=== PATIENT | female | born 1985 | race African-American/Black ===

== ENCOUNTER 2022-08-07 08:57 | Outpatient (CLI) | payer OTHER, MEDICAID, SELFPAY ==
[2022-08-07 12:51] LABS: Albumin* 3.6 g/dL (3.3-5.0); Chloride* 108 mmol/L (96-114)
[2022-08-07 12:52] LABS: Potassium* 4.4 mmol/L (3.6-5.1); Sodium* 138 mmol/L (135-149)
[2022-08-07 12:54] LABS: Aspartate Amino Transferase* 27 U/L (12-35); Bilirubin Total* 0.4 mg/dL (0.1-1.5); Blood Urea Nitrogen* 12 mg/dL (5-24); Carbon Dioxide* 24 mmol/L (20-32); Cholesterol* 167 mg/dL (90-199); Creatinine* 0.6 mg/dL (0.5-1.5); Estimated Glomerular Filt Rate 117 ml/min; Total Protein* 6.9 g/dL (6.0-8.3)
[2022-08-07 12:55] LABS: Alanine Aminotransferase* 20 U/L (4-35); Alkaline Phosphatase* 72 U/L (40-150); Calcium* 8.9 mg/dL (8.4-10.6); Glucose* 85 mg/dL (60-115); HDL Cholesterol* 80 mg/dL (>=50); LDL Cholesterol Calculated 73 mg/dL (<100); Triglycerides* 71 mg/dL (40-149)
== END 2022-08-07 08:58 | disposition home or self-care (01) ==
PROVIDERS: PCP Family Medicine; Visit Provider Family Medicine
DX: Z00.00 Encounter for general adult medical examination without abnormal findings (principal); R11.0 Nausea; Z13.29 Encounter for screening for other suspected endocrine disorder; Z13.6 Encounter for screening for cardiovascular disorders
CPT/HCPCS: 80053; 80061; 84443

== ENCOUNTER 2024-02-01 19:34 | Emergency (ER) | payer MEDICAID, SELFPAY ==
[2024-02-01 20:11] VITALS: BP 138/88; PULSE 66; RESP 16; TEMP 36.4; O2SAT 99; BMI 26.9
--- NOTE | 2024-02-01 20:52 | ED.GENADULT ---
HPI - General Adult General Chief complaint: Abdominal Pain Stated complaint: dizzy, stomach pain Time Seen by Provider: 02/01/24 20:41 Source: patient Mode of arrival: ambulatory Limitations: no limitations History of Present Illness HPI narrative: 38-year-old female coming in today concerned about abdominal pain. She states she has had on and off for many days, usually worse when she lays down at night. However, it has been more constant in the last 2 days. She states that is located in the epigastric region that sometimes radiates into the chest. She describes it as a burning pain. Drinking coffee or eating spicy food makes it worse. She states that it gets worse when she lays down at night. She denies any weight loss, fevers, chills, nausea or vomiting. Patient is status post x2, cholecystectomy, with sounds like a partial thyroidectomy. She is not on any medications. Patient denies alcohol or tobacco use. Related Data Previous Rx's ?Medication ?Instructions ?Recorded sumatriptan succinate 100 mg tablet See Rx Instructions PO .COMPLEX #6 05/26/23 tabs Allergies Allergy/AdvReac Type Severity Reaction Status Date / Time No Known Allergies Allergy Unknown Unverified 05/26/23 14:17 Review of Systems Status of ROS: Reports: 10 or more systems reviewed and unremarkable except as noted in History and below PFSH PFS Surgical History Status post left oophorectomy ?Z90.721 - Acquired absence of ovaries, unilateral (ICD-10) S/P cholecystectomy ?Z90.49 - Acquired absence of other specified parts of digestive tract (ICD-10) S/P tubal ligation ?Z98.51 - Tubal ligation status (ICD-10) S/P ?Z98.891 - History of uterine scar from previous surgery (ICD-10) Social History Smoking Status: Never smoker Exam Narrative: Exam Narrative: Well-nourished well-developed patient in no acute distress. Alert and oriented. Answers questions appropriately. Mood and affect are appropriate. Thoughts are goal oriented and rational. No tangential or magical thinking noted. Patient speaks in full sentences without needing to catch her breath. Making patient does not appear ill or toxic. HEENT: Normocephalic atraumatic. Pupils are equally round reactive to light. Extraocular muscles are intact. Conjunctivae are moist without any icterus noted. If she has a subconjunctival hemorrhage on the lateral left eye. Moist mucous membranes. Posterior pharynx is normal. Neck is soft without any lymphadenopathy. She does have what feels to be thyromegaly on the right. Cardiovascular: Heart is regular rate and rhythm S1 and S2 are present without any murmurs. Lungs: Clear to auscultation bilaterally no wheezes rhonchi or rales are appreciated. Patient takes deep breaths without any discomfort. Abdomen: Soft and nontender nondistended with normal bowel sounds. No guarding or rebound. No masses or organomegaly appreciated. Extremities: Bilateral lower extremities are without edema. Skin: Well perfused without any obvious rashes. Const: Vital Signs, click to edit/add: Vital Signs - 24 hr 02/01/24 20:11 Temperature 97.6 F Pulse Rate [Pulse Oximeter] 66 Respiratory Rate 16 Blood Pressure [Ri t Upper Arm] 138/88 Pulse Oximetry 99 Oxygen Delivery Me thod Room Air Course Vital Signs Vital signs: Initial Vital Signs Temperature 97.6 F 02/01/24 20:11 Temperature Source Temporal Artery Scan 02/01/24 20:11 Pulse Rate 66 02/01/24 20:11 Pulse Rhythm Regular 02/01/24 20:11 Respiratory Rate 16 02/01/24 20:11 Blood Pressure 138/88 02/01/24 20:11 Blood Pressure Mean 104 02/01/24 20:11 Blood Pressure Position Sitting 02/01/24 20:11 Pulse Oximetry 99 02/01/24 20:11 Oxygen Delivery Method Room Air 02/01/24 20:11 Vital Signs Temperature 97.6 F 02/01/24 20:11 Pulse Rate 66 02/01/24 20:11 Respiratory Rate 16 02/01/24 20:11 Blood Pressure 138/88 02/01/24 20:11 Pulse Oximetry 99 02/01/24 20:11 Oxygen Delivery Method Room Air 02/01/24 20:11 Temperature 97.6 F 02/01/24 20:11 Pulse Rate 66 02/01/24 20:11 Respiratory Rate 16 02/01/24 20:11 Blood Pressure 138/88 08/11/24 20:11 Pulse Oximetry 99 02/01/24 20:11 Oxygen Delivery Method Room Air 02/01/24 20:11 Medical Decision Making MDM Narrative Medical decision making narrative: 38-year-old female with abdominal discomfort consistent with GERD. Discussed daily omeprazole for the next 4-6 weeks. Discussed spicy foods, coffee, citrus. Discussed timing of eating and lying down. Enlarged thyroid on examination. Recommend she follow up with her primary care provider for further management and/or imaging. She denies any hair skin changes, no changes in her sleeping patterns or appetite. No weight changes. Did not check a TSH in the ED. Discharge Plan Discharge Clinical Impression: GERD (gastroesophageal reflux disease) Patient Disposition: Home, Self-Care Condition: Stable Additional Instructions: For your abdominal pain, I recommend that you start taking omeprazole (Prilosec) 1 tab daily. This can be purchased [id number] and [facility]. Also recommend you decrease your intake of spicy foods, coffee, citrus. Also recommend not eating for at least 2-3 hours prior to bedtime. Recommend you follow-up with your primary care provider to re-examine your thyroid, as it is enlarged on examination today. Prescriptions: No Action sumatriptan succinate 100 mg tablet See Rx Instructions PO .COMPLEX Qty: 6 0RF Rx Instructions: take 1 tab at onset of headache; if no relief, may repeat 1 tab after at least 2 hrs; max = 2 tabs/24 hrs PO Follow Up/Referrals: Donavan Galarza MD [Primary Care Provider] - Stand Alone Forms: [employer] Mobile Info Instructions
== END 2024-02-01 21:10 | disposition home or self-care (01) ==
PROVIDERS: Emergency Provider Family Medicine; PCP Family Medicine
DX: K21.9 Gastro-esophageal reflux disease without esophagitis (principal)
CPT/HCPCS: 99283; 99284

== ENCOUNTER 2024-11-18 22:27 | Emergency (ER) | payer MEDICAID, SELFPAY ==
--- OUTSIDE RECORDS SUMMARY | 2013-03-06 18:55 | XMS_ITS | Continuity of Care Document ---
Author Organization [facility] Address [address] [place] [address] Phone Care Team Providers Care Signal Inspector Name Role Phone Eddie Ross MD Unavailable Unavailable Results Test Name Date and Time Measure Units Reference Range Abnormal Flag Status Comments Panel Description: ELIZABETH Dir+ELIZABETH IFA Final ELIZABETH Direct 00:05:00 Negative Negative Final Antinuclear Antibodies, IFA 00:05:00 Negative Final Negative <1:80 Borderline 1:80 Positive >1:80 Panel Description: Lyme, Total Ab Test/Reflex F inal Lyme IgG/IgM Ab 00:05:00 <0.91 index 0.00-0.90 Final Negative <0.91 Equivocal 0.91 - 1.09 Positive >1.09 Note: The CDC currently advises that Western blot testing be performed following all equivocal or positive EIA results. Final diagnosis should include appropriate clinical findings and a positive EIA which is also positive by Western blot. Lyme Ab Interp.,EIA 00:05:00 Comment Final Lyme Ab Interp.,EIA 00:05:00 Comment Final Panel Description: RA Qn+CCP(IgG/A) Final RA Latex Turbid. 00:05:00 4.2 IU/mL 0.0-13.9 Final CCP Antibodies IgG/IgA 00:05:00 3 units 0-19 Final Negative <20 Weak positive 20 - 39 Moderate positive 40 - 59 Strong positive >59 Panel Description: CBC Final WBC 16:57:00 5.0 K/uL 3.5-10.8 Final Lymphocyte% 16:57:00 56.6 % 15.1-43.0 H Final Mid% 16:57:00 6.5 % 1.0-18.0 Final Gran% 16:57:00 36.9 % 45.0-76.0 L Final Lymphocyte # 16:57:00 2.8 K/uL 0.9-5.2 Final Mid # 16:57:00 0.3 K/uL 0.1-2.0 Final Gran # 16:57:00 1.8 K/uL 1.4-9.1 Final RBC 16:57:00 4.17 M/uL 3.80-5.20 Final Hemoglobin 16:57:00 11.7 g/dL 11.5-16.0 Final Hematocrit 16:57:00 34.7 % 36.0-49.0 L Final MCV 16:57:00 83 fL 81-100 Final MCH 16:57:00 28 pg 27-35 Final MCHC 16:57:00 33.7 g/dL 31.0-37.5 Final MPV 16:57:00 8.6 fL 7.0-10.4 Final Platelet Count 16:57:00 400 K/uL 130-400 Final Panel Description: ESR Final ESR 16:57:00 40 mm/hr 0-25 H Final Panel Description: NSAID Final AST 16:58:00 20 U/L 5-34 Final ALT 16:58:00 18 IU/L 5-35 Final BUN 16:58:00 12 mg/dL 10-37 Final Creatinine 16:58:00 0.8 mg/dL 0.5-1.3 Final B/C Ratio 16:58:00 15.0 Ratio Final Uric Acid 16:58:00 4.1 mg/dL 2.6-6.0 Final Alk Phos 11 16:58:00 54 U/L 30-103 Final Panel Description: CRP Final CRP 11 16:58:00 0.88 MG/DL 0.00-0.60 H Final Advance Directives Directive Yes / No Effective Date File Name No Information Encounters Encounter Description Practice Location Reason(s) For Visit Diagnoses Date Provider Providers Copied on Encounter [facility], [address], [place], [address], tel:[phone] No Information 3 Cody Couch [facility] [address], [place], [address], [place]. tel:[phone] Family History Family Member Type Diagnosis Age At Onset No Information Payers Payer name Insurance type Covered green party ID Authoriza tion(s) No Information Social History Type Description Quantity Date Captured Comments Sex Female Smoking Status No Information Chief Complaint And Reason For Visit No Information Reason For Referral Reason For Referral No Information History Of Present Illness Encounter Date Complaint History Of Prese nt Illness No Information Functional Status Date Functional Assessmen t No Information Instructions Date Instruction Additional Infor mation No Information Assessments Type Assessment Date No Information Patient Care Teams Name Effective Dates (start - stop) Status Members No Information
--- OUTSIDE RECORDS SUMMARY | 2024-10-11 09:00 | XMS_ITS | Encounter Summary ---
Author Organization [place] Address [address] [place] [address] Care Team Providers Care Digital Content Producer Name Role Phone Blossom Matos MD Primary Care P rovider Barbara Brennan PA-C Unavailable Barbara Brennan PA-C Unavailable Fatmata Waggoner RPH Unavailable Unavailable Fatmata Waggoner RPH Unavailable Unavailable Reason for Visit * Reason Comments Medication Therapy Management Encounter Details Date Type Department Care Team (Late st Contact Info) Description 10/11/2024 9:00 AM CDT Virtual Visit [facility] [address] [place] [address] Barbara Brennan PA-C [address] [place] [address] Fatmata Waggoner, RPH Social History Tobacco Use Types Packs/Day Years Used Date Smoking Tobacco: Never Passive Smoke Exposure: Never Smokeless Tobacco: Never Passive Exposure Comments:pe r pt Alcohol Use Standard Drinks/Week Comments No 0 (1 standard drink = 0.6 oz pur e alcohol) PHQ-2 Answer Date Recorded PHQ-2 Score 1 08/12/2024 [place] Depression Scale Answer Date Recorded [place] Depression Score 0 07/31/2019 Last EPDS Self Harm Result Not on file 07/31 Comments No Sex and Gender Information Value Date Recorded Sex Assigned at Not on file 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 Pylori eradication test kit has been placed. You can diamond picker from any [facility] lab and test at any point. You must be off metronidazole and tetracycline for at least 4 weeks before testing. You must be off omeprazole for at least 2 weeks before testing If needed, can take OTC famotidine for breakthrough heartburn/reflux symptoms Follow-up: as needed. It was great speaking with you today. I value your experience and would be very thankful for your time in providing feedback in our clinic survey. In the next few days, you may receive an email or text message from [employer] with a link to a survey related to your ???clinical pharmacist. To schedule another MTM appointment, please call the clinic directly or you may call the MTM scheduling line at [phone]. My Clinical Pharmacist's contact information: Please feel free to contact me with any questions or concerns you have. Fatmata Waggoner, PharmD MTM Pharmacist [facility] G[facility]enter[facility] documented in this encounter Progress Notes * Fatmata Waggoner RPH - 10/11/2024 9:00 AM CDT Medication Therapy Management (MTM) Encounter ASSESSMENT: Medication Adherence/Access: No issues identified. H. pylori: Called Rosalina to remind her to complete eradication testing for H. Pylori. Reminded her that she should not take omeprazole for at least 2 weeks prior to testing. She has been feeling well since completing her H. pylori treatment regimen, stating she has not experienced heartburn, reflux, borborygmi or nausea since finishing her medication. PLAN: An order for H. Pylori eradication test kit has been placed. You can diamond picker from any [facility] lab and test at any point. You must be off metronidazole and tetracycline for at least 4 weeks before testing. You must be off omeprazole for at least 2 weeks before testing If needed, can take OTC famotidine for breakthrough heartburn/reflux symptoms Follow-up: as needed. SUBJECTIVE/OBJECTIVE: Rosalina Agudelo is a 39 year old female seen for a follow-up visit. Reason for visit: H. pylori eradication testing reminder. Allergies/ADRs: Reviewed in chart Past Medical History: Reviewed in chart Tobacco: She reports that she has never smoked. She has never used smokeless tobacco. Alcohol: none Medication Adherence/Access: no issues reported. H. pylori: - Bismuth Quad: - Tetracycline 500 mg : 1 cap 4 times daily - Metronidazole 500 m tab 4 times daily - Pepto Bismol 262 mg chew tab: 2 tabs (524 mg) 4 times daily - Omeprazole 20 mg twice daily Duration of Therapy: 14 days Rosalina had some side effects including nausea and dizziness. She reports these have resolved since finishing therapy. Started regimen on: 08/28/24 Completion date: 09/10/24 Eradication testing no sooner than: 10/08/24 H. Pylori symptoms reported at original visit: heartburn and nausea - she sometimes wakes up in the middle of the night and feels like she is going to throw up, but it is more a reflux sensation rather than nausea. She notes borborygmi as well. [place] these has improved at our last follow up. Feels H. Pylori symptoms have improved. Today's Vitals: LMP (LMP Unknown) I spent 5 minutes with this patient today. All changes were made via collaborative practice agreement with Barbara Brennan PA-C A summary of these recommendations was declined by the patient. Fatmata Waggoner, PharmD MTM Pharmacist [facility] Gastroenterology Telemedicine Visit Details The patient's medications can be safely assessed via a telemedicine encounter. Type of service: Telephone visit Originating Location (pt. Location): Home Distant Location (provider location): Off-site Start Time: 0900 End Time: 904 Medication Therapy Recommendations No medication therapy recommendations to display documented in this encounter Plan of Treatment Upcoming Encounters Date Type Department Care Team (Late st Contact Info) Description 01/25/2025 8:30 AM CDT Virtual Visit [facility] [address] [place] [address] Barbara Brennan PA-C [address] [place] [address] documented as of this encounter Visit Diagnoses Not on filedocumented in this encounter Care Teams Digital Content Producer Relationship Specialty Start Date End Date Blossom Matos MD [address] [place], [place] [id number] PCP - General Internal Medicine 02/17/13 Barbara Brennan PA-C [address] [place] [address] Physician Program Research Specialist Physician Program Research Specialist - Medical 06/02/24 Barbara Brennan PA-C [address] [place] [address] Assigned Gastroenterology Provider 08/15/24 Fatmata Waggoner RPH Pharmacist 08/25/24 Fatmata Waggoner RPH Assigned MTM Pharmacist 09/12/24 documented as of this encounter
--- OUTSIDE RECORDS SUMMARY | 2024-10-22 09:20 | XMS_ITS | Encounter Summary ---
Author Organization [facility] Address [address] [place] [address] Care Team Providers Care Strap Setter Name Role Phone Blossom Matos MD Primary Care P rovider Barbara Brennan PA-C Unavailable Barbara Brennan-C Unavailable Fatmata Waggoner RPH Unavailable Unavailable Fatmata Waggoner RPH Unavailable Unavailable Reason for Referral * Rehab Therapy Physical Therapy (Routine: Next available opening) - Pending Review Specialty Diagnoses / Procedures Referred By Tuyet ovalle Referred To Contact Diagnoses Peroneal tendonitis of left lower extremity Ewelina Cerrato MD [address], [address] [address] Phone: tel: fax: Referral ID Status Reason Start Date Expiration Date V isits Requested Visits Authorized [id number] Pending Review 10/22/2024 10/22/2025 1 1 Question Answer Course of Action: Evaluation and Treatment Specialty Services: Per Associated Diagnosis Patient Scheduling Instructions: [facility] will call you to coordinate your care as prescribed by your provider. If you don't hear from a roofing sales representative within 2 business days, please call . Comments Please be aware that coverage of these services is subject to the terms and limitations of your health insurance plan. Call member services at your health plan with any benefit or coverage questions. [facility] will call you to coordinate your care as prescribed by your provider. If you don't hear from a roofing sales representative within 2 business days, please call . * Occupational Therapy (Routine: Next available opening) - Pending Review Specialty Diagnoses / Procedures [facility] Referred To Contact Diagnoses Left wrist pain De Quervain's disease (radial styloid tenosynovitis) Ewelina Cerrato MD [address], [address] [address] Phone: tel: fax: Referral ID Status Reason Start Date Expiration Date V isits Requested Visits Authorized [id number] Pending Review 10/22/2024 10/22/2025 1 1 Question Answer Course of Action: Evaluation and Treatment Specialty Services: Per Associated Diagnosis Patient Scheduling Instructions: [facility] will call you to coordinate your care as prescribed by your provider. If you don't hear from a roofing sales representative within 2 business days, please call . Comments Please be aware that coverage of these services is subject to the terms and limitations of your health insurance plan. Call member services at your health plan with any benefit or coverage questions. [facility] will call you to coordinate your care as prescribed by your provider. If you don't hear from a roofing sales representative within 2 business days, please call . * Diagnostic Imaging XR (Routine) - Pending Review Specialty Diagnoses / Procedures Referred By Contac t Referred To Contact Radiology. Diagnoses Metacarpophalangeal joint pain of left hand Procedures XR Foot Left G/E 3 Views Ewelina Cerrato MD [address], [address] [address] Phone: tel: fax: Referral ID Status Reason Start Date Expiration Date V isits Requested Visits Authorized [id number] Pending Review 10/22/2024 10/22/2025 1 1 * Diagnostic Imaging XR (Routine) - Pending Review Specialty Diagnoses / Procedures Referred By Tuyet ovalle Referred To Contact Radiology. Diagnoses Metacarpophalangeal joint pain of left hand Procedures XR Hand Left G/E 3 Views Ewelina Cerrato MD [address], [address] [address] Phone: tel: fax: Referral ID Status Reason Start Date Expiration Date V isits Requested Visits Authorized [id number] Pending Review 10/22/2024 10/22/2025 1 1 Reason for Visit * Reason Comments Pain * Consultation (Priority: 1-2 Weeks) - Pending Review Specialty Diagnoses / Procedures Referred By Tuyet ovalle Referred To Contact Diagnoses Metacarpophalangeal joint pain of left hand Robby Rondon, DO [address] [place] [address] Phone: tel: fax: Referral ID Status Reason Start Date Expiration Date V isits Requested Visits Authorized [id number] Pending Review 09/27/2024 09/27/2025 1 1 Encounter Details Date Type Department Care Team (Late st Contact Info) Description 10/22/2024 9:20 AM CDT Office Visit [facility] [place] [address] [place] [phone] Robby Rondon, DO [address] [place] [address] Ewelina Cerrato MD [address], [facility] [address] [address] De Quervain's disease (radial styloid tenosynovitis) (Primary Dx); Peroneal tendonitis of left lower extremity; Left wrist pain Social History Tobacco Use Types Packs/Day Years Used Date Smoking Tobacco: Never Passive Smoke Exposure: Never Smokeless Tobacco: Never Passive Exposure Comments:pe r pt Alcohol Use Standard Drinks/Week Comments No 0 (1 standard drink = 0.6 oz pur e alcohol) PHQ-2 Answer Date Recorded PHQ-2 Score 1 08/12/2024 [place] Depression Scale Answer Date Recorded [place] Depression Score 0 07/31/2019 Last EPDS Self Harm Result Not on file 07/31 Comments No Sex and Gender Information Value Date Recorded Sex Assigned at Not on file Legal Sex 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 Rosalina Agudelo, It was nice to see you in our office today. DIAGNOSIS: 1. De Quervain's disease (radial styloid tenosynovitis) 2. Peroneal tendonitis of left lower extremity 3. Left wrist pain INSTRUCTIONS FOR FOLLOW-UP CARE: Activity Modification: As tolerated letting pain be your guide using the following simple ???Traffic Light System?? as it relates to tendon pain: Green Light (0-3/10 pain): No increases in symptoms, you are OK to continue the activity, or perhaps increase load slightly. Yellow light (4-6/10 pain): Minor increase in symptoms, but you can move normally within an hour ofexercise, and pain reduces to normal within the next 24 hours. Proceed with caution, you can do minor bouts of loading, but too much will aggravate your symptoms and increase pain. Red light (7-10/10 pain): Cease activity, as you have exceeded your tolerance. Generally, involves a significant increase in pain, which may not settle in the following 24 hours. Rest for 24-48 hours, allow symptoms to settle down, then begin gentle movement, and monitor your progression. The goal is to try and find the right amount of activity, and increase slowly, allowing your tendonto adapt as you improve. Imaging/Tests: Radiographs reviewed Rehabilitation: Hand therapy recommended for De Quervain's and Physical therapy recommended for peroneal tendonitis, referral placed Orthotics/Bracing: Recommend thumb spica splint and ankle stabilizing brace with activity Medication: -Topical Medication Options: May use topical Voltaren gel up to 4 times daily as needed for pain, if symptoms persist, May use topical Aspercreme up to 4 times daily as needed for pain, if symptoms persist May alternate with topical Verasome gel up to 4 times daily as needed for pain: this may be purchased at: https://[email or web address]-go/verasome with using patient pricing code [email or web address] For night time pain, consider nightly Salonpas patches nightly (on for 12 hours and off for 12 hours) --Oral medication options: Tylenol 500-1000mg (up to three times per day) and ibuprofen 600mg (up to three times per day) as needed for pain and swelling. Always take ibuprofen with food. Interventions: None recommended at this time. Consider Ultrasound guided tendon sheath corticosteroid injection if symptoms persist Follow-up Plan: As needed after 3-4 sessions of PT/OT if symptoms persist CLINIC LOCATIONS: [place] MEDICAL RECORDS: [phone] [address], [address] [place] HELP LINE: [place] [address] TRIAGE LINE: [phone] (Friday & Friday) APPOINTMENTS: [phone] RADIOLOGY: [phone] [place] MRI/CT [phone] [address] [facility] [address] PHYSICAL & OCCUPATIONAL THERAPY: [phone]* [place] [address] BILLING QUESTIONS: [phone] (Friday & ) FAX: [phone] *Therapy locations that offer Friday options: [facility] Thank you for choosing [facility]! If you have any questions, please do not hesitate to reach out on [employer] or Call [phone] and ask for my team. Ewelina Cerrato MD, [facility] Orthopedics and Sports Medicine * Attachments The following attachments cannot be sent through Care Everywhere. * RICE: General Info (Malian) documented in this encounter Progress Notes * Ewelina Cerrato MD - 10/22/2024 9:20 AM CDT [facility] NEW PATIENT VISIT REFERRAL SOURCE: Robby Rondon HISTORY OF PRESENT ILLNESS Rosalina Agudelo is a 39 year old Right-handed female presenting as a new patient with left wrist/hand pain When did problem start?/ Trauma associated with onset?: Hand/Foot: 09/24/2024, without trauma Location & description of pain: Left hand, first CMC and MCP joint Left foot: Lateral foot along course of peroneus brevis Exacerbating factors: Left hand: Constant pain; worse with braiding Foot: Standing Remitting factors: Rest Previous Treatments: -Medications: Indomethacin-urgent care treated for gout -Rehabilitation: NA -Durable Medical Equipment: NA -Injections: NA -Modalities: none -Other Providers seen: urgent care 09/27/2024 Sports, Hobbies, Employment: Exercise - running, Hair Breading Average hours of sleep per night: 6 hours Average minutes of exercise per day: Daily 3-4 Area of Problem Date 1 Date 2 Date 3 Date 4 Date 5 Function Ability in last week - % of Baseline (0 is worst & 100 is best) Sport/Activity Ability in last week - % of Baseline (0 is worst & 100 is best) Pain Level in the last week (0 is best & 10 is worst) Additional Information of consideration: -Neck Pain?: none -Numbness/paresthesias in extremities?: yes on both hands intermittent numbness -Weakness?:yes MEDICATIONS Current Outpatient Medications: indomethacin (INDOCIN) 25 MG capsule, Take 1 capsule (25 mg) by mouth 3 times daily (with meals) for 7 days., Disp: 21 capsule, Rfl: 0 ALLERGIES No Known Allergies PAST MEDICAL HISTORY Past Medical History: Diagnosis Date Cervical high risk HPV (human papillomavirus) test positive 03/13/2017 03/13/17 [place], +HR HPV, not 16 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 PAST SURGICAL HISTORY Past Surgical History: Procedure Laterality Date SECTION 2002, 2004 ESOPHAGOSCOPY, GASTROSCOPY, DUODENOSCOPY (EGD), COMBINED N/A 08/24/2024 Procedure: Esophagoscopy, gastroscopy, duodenoscopy (EGD), combined; Surgeon: Bret Santizo MD; Location: GI SOAKER HIDES SURGERY C/S x 2 LAPAROSCOPIC CHOLECYSTECTOMY WITH CHOLANGIOGRAMS N/A 08/13/2019 Procedure: LAPAROSCOPIC CHOLECYSTECTOMY WITH CHOLANGIOGRAMS; Surgeon: Abdirashid Sanabria MD; Location: OR THYROIDECTOMY 05/07/2013 Procedure: THYROIDECTOMY; LEFT THYROID LOBECTOMY; Surgeon: Elizabeth Ortega MD; Location: OR SOCIAL HISTORY Social History Tobacco Use Smoking status: Never Passive exposure: Never (per pt) Smokeless tobacco: Never Substance Use Topics Alcohol use: No Drug use: No FAMILY HISTORY Family History Problem Relation Age of Onset Family History Negative Mother Cerebrovascular Disease Father REVIEW OF SYSTEMS Complete 12 system Review of Systems performed and was negative except for HPI. VITALS Estimated body mass index is 26.58 kg/m?? as calculated from the following: Height as of 09/13/24: 1.753 m (5' 9). Weight as of 09/27/24: 81.6 kg (180 lb). PHYSICAL EXAMINATION General: Age appropriate appearing, no acute distress HEENT: normocephalic, atraumatic, sclera non-icteric Skin: No open skin lesion noted in visible areas. Respiratory: Non labored breathing, No wheezes. Cardiac/Vessels: No edema, cyanosis, clubbing noted in all extremities. Lymph: No palpable lymph node swelling noted around the affected area. Mental: There was no signs of aberrant behaviors noted. Patient was pleasant throughout the encounter. Functional Movements: Non-antalgic gait appreciated. LEFT WRIST/HAND: Inspection: No discoloration noted around the left wrist and hand bilaterally Palpation: TTP radial aspect of left wrist and dorsal aspect of left thumb LEFT Special Testin st CMC Grind test (-) Abdulaziz's test (+) IMAGING STUDIES: 10/22/2024 Left foot radiographs: Normal joint space and alignment without fracture/avulsion. 10/22/3034 Left hand radiographs: Normal joint space and alignment without fracture/avulsion. I personally reviewed these images and shared the findings with the patient. IMPRESSION Rosalina Agudelo is a very pleasant 39 year old right, [id number] female who is presenting today with left radial wrist and lateral ankle/foot pain with positive left Abdulaziz's test, negative CMC grind test, and left foot tenderness along course of peroneus brevis, most pronounced with eversion. Her symptoms of wrist and foot pain started on 09/24/2024 without trauma and radiographs are negative for fracture. Clinical findings are most consistent with left wrist De Quervain's tenosynovitis and left peroneus brevis tendonitis. PLAN The following was discussed with the patient: Activity Modification: As tolerated being guided by pain Imaging/Tests: Radiographs reviewed Rehabilitation: Hand therapy recommended for De Quervain's and Physical therapy recommended for peroneal tendonitis, referral placed Orthotics/Bracing: Recommend thumb spica splint and ankle stabilizing brace with activity Medication:Non-prescription topical and/or oral analgesics may be used as needed Interventions: None recommended at this time. Consider Ultrasound guided tendon sheath corticosteroid injection if symptoms persist Follow-up Plan: As needed after 3-4 sessions of PT/OT if symptoms persist Resources Provided: Written and verbal information detailing above findings and plan provided including after visit summary. They were encouraged to message me on [employer] whenever they needed. The patient was in agreement with this plan. All questions were answered to the best of my ability. Total time (nvsa-rj-geqi and wfy-mhpw-fs-face) spent on today's visit was 60 minutes. This includedpreparation for the visit (i.e. reviewing test results), performance of a medically appropriate history and examination, placing orders for medications, tests or other procedures, anddiscussing the plan of care with the patient. This time is exclusive of procedures performed and time spent teaching. Ewelina Cerrato MD, [facility] Sports Medicine Attending Physician Department of Physical Medicine & Rehabilitation documented in this encounter Plan of Treatment Upcoming Encounters Date Type Department Care Team (Late st Contact Info) Description 01/25/2025 8:30 AM CDT Virtual Visit [facility] [address] [place] [address] Barbara Brennan PA-C [address] [place] [address] Scheduled Referrals Name Type Priority Associated Diagnoses Order Schedule Occupational Therapy Rodding Machine Tender Referral Referral Routine: Next available opening Left wrist pain De Quervain's disease (radial styloid tenosynovitis) Expected: 10/22/2024 (Approximate), Expires: 10/22/2025 Physical Therapy Rodding Machine Tender Referral Referral Routine: Next available opening Peroneal tendonitis of left lower extremity Expected: 10/22/2024 (Approximate), Expires: 10/22/2025 documented as of this encounter Results * XR Foot Left G/E 3 Views (10/22/2024 9:34 AM CDT) Anatomical Region Laterality Modality Foot, Ankle Left Computed Radiogr aphy 10/22/2024 9:34 AM CDT Impressions 10/22/2024 5:42 PM CDT IMPRESSION: Minimal degenerative arthritis first IP joint. Hindfoot valgus. No erosions. No fracture. Narrative 10/22/2024 5:42 PM CDT EXAM: XR FOOT LEFT G/E 3 VIEWS LOCATION: [facility] DATE: 10/22/2024 INDICATION: Pain COMPARISON: None. Procedure Note Brenda Silvestre MD - 10/22/2024 EXAM: XR FOOT LEFT G/E 3 VIEWS LOCATION: [facility] DATE: 10/22/2024 INDICATION: Pain COMPARISON: None. IMPRESSION: Minimal degenerative arthritis first IP joint. Hindfootvalgus. No erosions. No fracture. Ewelina Cerrato MD [facility] ORDER PRAVEEN Final Result * XR Hand Left G/E 3 Views (10/22/2024 9:34 AM CDT) Anatomical Region Laterality Modality Hand, Wrist Left Computed Radiogr aphy 10/22/2024 9:34 AM CDT Impressions 10/22/2024 5:40 PM CDT IMPRESSION: Normal joint spaces and alignment. No erosions. No fracture. Narrative 10/22/2024 5:40 PM CDT EXAM: XR HAND LEFT G/E 3 VIEWS LOCATION: [facility] DATE: 10/22/2024 INDICATION: Metacarpophalangeal joint pain of left hand COMPARISON: None. Procedure Note Brenda Silvestre MD - 10/22/2024 EXAM: XR HAND LEFT G/E 3 VIEWS LOCATION: [facility] DATE: 10/22/2024 INDICATION: Metacarpophalangeal joint pain of left hand COMPARISON: None. IMPRESSION: Normal joint spaces and alignment. No erosions. No fracture. Ewelina Cerrato MD [facility] ORDER PRAVEEN Final Result documented in this encounter Visit Diagnoses Diagnosis De Quervain's disease (radial styloid tenosynovitis)- Primary Radial styloid tenosynovitis Peroneal tendonitis of left lower extremity Left wrist pain Pain in joint, forearm Metacarpophalangeal joint pain of left hand documented in this encounter Care Teams Strap Setter Relationship Specialty Start Date End Date Blossom Matos MD [address] [place] [address] PCP - General Internal Medicine 02/17/13 Barbara Brennan PA-C [address] [place] [address] Physician Clinical Researcher Physician Clinical Researcher - Medical 06/02/24 Barbara Brennan PA-C [address] [place] [address] Assigned Gastroenterology Provider 08/15/24 Fatmata Waggoner [facility] [place] [facility] Pharmacist 08/25/24 Fatmata Waggoner RP Assigned [place] Pharmacist 09/12/24 documented as of this encounter
--- OUTSIDE RECORDS SUMMARY | 2024-10-22 09:25 | XMS_ITS | Encounter Summary ---
Author Organization [employer] Address [address] [place] [address] Care Team Providers Care Want Ad Supervisor Name Role Phone Blossom Matos MD Primary Care P rovider Barbara Brennan PA-C Unavailable Barbara Brennan PA-C Unavailable Fatmata Waggoner RPH Unavailable Unavailable Fatmata Waggoner RPH Unavailable Unavailable Reason for Visit * Diagnostic Imaging XR (Routine) - Pending Review Specialty Diagnoses / Procedures Referred By Tuyet ovalle Referred To Contact Radiology. Diagnoses Metacarpophalangeal joint pain of left hand Procedures XR Foot Left G/E 3 Views Ewelina Cerrato MD [address], [facility] [address] [address] Phone: tel: fax: Referral ID Status Reason Start Date Expiration Date V isits Requested Visits Authorized [id number] Pending Review 10/22/2024 10/22/2025 1 1 Encounter Details Date Type Department Care Team (Latest Contact Info) Description 10/22/2024 9:25 AM CDT Ancillary Procedure [address] [address] [phone] Ewelina Cerrato MD [address], [facility] [address] [address] Metacarpophalangeal joint pain of left hand Social History Tobacco Use Types Packs/Day Years Used Date Smoking Tobacco: Never Passive Smoke Exposure: Never Smokeless Tobacco: Never Passive Exposure Comments:pe r pt Alcohol Use Standard Drinks/Week Comments No 0 (1 standard drink = 0.6 oz pur e alcohol) PHQ-2 Answer Date Recorded PHQ-2 Score 1 08/12/2024 [place] Depression Scale Answer Date Recorded [place] Depression Score 0 07/31/2019 Last EPDS Self Harm Result Not on file 07/31 Comments No Sex and Gender Information Value Date Recorded Sex Assigned at Not on file 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 Gender Identity Not on file Sexual Orientation Not on file 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 on file documented as of this encounter Plan of Treatment Upcoming Encounters Date Type Department Care Team (Late st Contact Info) Description 01/25/2025 8:30 AM CDT Virtual Visit [facility] [address] [place] [phone] Barbara Brennan PA-C [address] [place] [address] documented as of this encounter Procedures Procedure Name Priority Date/Time Associated Diagnosis Comments XR HAND LEFT G/E 3 VIEWS Routine 10/22/2024 9:34 AM CDT Metacarpophalangeal joint pain of left hand XR FOOT LEFT G/E 3 VIEWS Routine 10/22/2024 9:34 AM CDT Metacarpophalangeal joint pain of left hand documented in this encounter Results * XR Foot Left G/E 3 Views (10/22/2024 9:34 AM CDT) Anatomical Region Laterality Modality Foot, Ankle Left Computed Radiogr aphy 10/22/2024 9:34 AM CDT Impressions 10/22/2024 5:42 PM CDT IMPRESSION: Minimal degenerative arthritis first IP joint. Hindfoot valgus. No erosions. No fracture. Narrative 10/22/2024 5:42 PM CDT EXAM: XR FOOT LEFT G/E 3 VIEWS LOCATION: [facility] DATE: 10/22/2024 INDICATION: Pain COMPARISON: None. Procedure Note Brenda Silvestre MD - 10/22/2024 EXAM: XR FOOT LEFT G/E 3 VIEWS LOCATION: [facility] DATE: 10/22/2024 INDICATION: Pain COMPARISON: None. IMPRESSION: Minimal degenerative arthritis first IP joint. Hindfootvalgus. No erosions. No fracture. Ewelina [facility] ORDER PRAVEEN Final Result * XR Hand Left G/E 3 Views (10/22/2024 9:34 AM CDT) Anatomical Region Laterality Modality Hand, Wrist Left Computed Radiogr aphy 10/22/2024 9:34 AM CDT Impressions 10/22/2024 5:40 PM CDT IMPRESSION: Normal joint spaces and alignment. No erosions. No fracture. Narrative 10/22/2024 5:40 PM CDT EXAM: XR HAND LEFT G/E 3 VIEWS LOCATION: [facility] DATE: 10/22/2024 INDICATION: Metacarpophalangeal joint pain of left hand COMPARISON: None. Procedure Note Brenda Silvestre MD - 10/22/2024 EXAM: XR HAND LEFT G/E 3 VIEWS LOCATION: [facility] DATE: 10/22/2024 INDICATION: Metacarpophalangeal joint pain of left hand COMPARISON: None. IMPRESSION: Normal joint spaces and alignment. No erosions. No fracture. Ewelina [facility] ORDER PRAVEEN Final Result documented in this encounter Visit Diagnoses Diagnosis Metacarpophalangeal joint pain of left hand documented in this encounter Care Teams Want Ad Supervisor Relationship Specialty Start Date End Date Blossom Matos MD [address] [place] [address] PCP - General Internal Medicine 02/17/13 Barbara Brennan PA-C [address] [place] [address] Physician Director Of Grants Physician Director Of Grants - Medical 06/02/24 Barbara Brennan PA-C [address] [place] [address] Assigned Gastroenterology Provider 08/15/24 Fatmata Waggoner RPH Pharmacist 08/25/24 Fatmata Waggoner RPH Assigned [facility] Pharmacist 09/12/24 documented as of this encounter
--- OUTSIDE RECORDS SUMMARY | 2024-10-26 10:00 | XMS_ITS | Encounter Summary ---
Author Organization [facility] Address [address] [facility] [place] [address] Care Team Providers Care Oceanography Teacher Name Role Phone Blossom Matos MD Primary Care P rovider Barbara Brennan-C Unavailable Barbara Brennan-C Unavailable Fatmata Waggoner RPH Unavailable Unavailable Fatmata Waggoner RPH Unavailable Unavailable Reason for Visit * Reason Comments Travel Clinic [facility] travels Encounter Details Date Type Department Care Team (Late st Contact Info) Description 10/26/2024 10:00 AM CDT Office Visit [facility] [id number] [place] [address] [phone] Gilles Reed PA-C [id number] [place] [address] [phone] Encounter for counseling for travel (Primary Dx); Need for immunization against yellow fever Social History Tobacco Use Types Packs/Day Years Used Date Smoking Tobacco: Never Passive Smoke Exposure: Never Smokeless Tobacco: Never Passive Exposure Comments:pe r pt Alcohol Use Standard Drinks/Week Comments No 0 (1 standard drink = 0.6 oz pur e alcohol) PHQ-2 Answer Date Recorded PHQ-2 Score 1 08/12/2024 [place] Depression Scale Answer Date Recorded [place] Depression Score 0 07/31/2019 Last EPDS Self Harm Result Not on file 07/31 Interpersonal Safety Answer Date Record ed Do you feel physically and e motionally safe where you currently live? Yes 10/26/2024 Within the past 12 months, h ave you been hit, slapped, kicked or otherwise physically hurt by someone? No 10/26/2024 Within the past 12 months, h ave you been humiliated or emotionally abused in other ways by your partner or ex-partner? 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 on file documented as of this encounter Last Filed Vital Signs Vital Sign Reading Time Taken Comments Blood Pressure 117/73 10/26/2024 9:52 AM CDT Pulse 66 10/26/2024 9:52 AM CDT Temperature 36.3 C (97.3 F) 10/26/2024 9:52 AM CDT Respiratory Rate 12 10/26/2024 9:52 AM CDT Oxygen Saturation 99% 10/26/2024 9:52 AM CDT Inhaled Oxygen Concentration - - Weight 82.3 kg (181 lb 6.4 oz) 10/26/2024 9:52 A M CDT Height 175.3 cm (5' 9) 10/26/2024 9:52 AM CDT Body Mass Index 26.79 10/26/2024 9:52 AM CDT documented in this encounter Patient Instructions * Patient Instructions* Gilles Reed PA-C - 10/26/2024 10:00 AM CDT See travel packet provided Recommend ultrathon (mosquito repellant), pepto bismol and imodium The food and drink choices you make while traveling can impact your likelihood of getting sick. If you aren't sure if a food or drink is safe, the saying BOIL IT, COOK IT, PEEL IT, OR FORGET IT can help you decide whether it's okay to consume. Also bring hand photographic editor and sun screen with you. Safe Travels If you first start to get mild to moderate diarrhea, take imodium. If diarrhea is severe or you have a fever with the diarrhea, take the antibiotic (azithromycin). Today October 26, 2024 you received the Yellow Fever (YF). These appointments can be made as a NURSE ONLY visit. It is very important for the vaccinations to be given on the scheduled day(s), this helps ensure you receive the full effectiveness of the vaccine. Please call [facility] with any questions [phone] Thank you for visiting [facility] documented in this encounter Progress Notes * Gilles Reed PA-C - 10/26/2024 10:00 AM CDT SUBJECTIVE: Rosalina Agudelo , a 39 year old female, presents for counseling and information regarding upcoming travel to [facility]. Special medical concerns include: none. She anticipates the following unusual exposures: none. Itinerary: [place] Departure Date: 11-22-2024 Return date: 01-09-2025 Reason for travel (i.e. Business, pleasure): pleasure Visiting an urban or rural area?: urban Accommodations (i.e. hotel, hostel, friends, family, etc): family Women - First day of your last period: 09/2024 IMMUNIZATION HISTORY Have you received any vaccinations in the past 4 weeks? If so, which? No Have you ever fainted from having your blood drawn or from an injection? No Have you ever had any bad reaction or side effect from any vaccination? If so, which? No Do you live (or work closely) with anyone who has AIDS, an AIDS-like condition, any other immune disorder or who is on chemotherapy for cancer? No Have you received any injection of immune globulin or any blood products during the past 12 months?No GENERAL MEDICAL HISTORY Do you have a medical condition that requires medicine or doctor follow-up visits? No Do you have a medical condition that is stable now, but that may recur while traveling? No Has your spleen been removed? No Have you had an illness or a fever in the past 48 hours? No Are you , or might you become on this trip? Any chance of ? No Are you ? No Do you have HIV, AIDS, an AIDS-like condition, any other immune disorder, leukemia or cancer? No Have you had your thymus gland removed or history of problems with your thymus, such as myasthenia gravis, DiGeorge syndrome, or thymoma? No Do you have a severely low platelet count (thrombocytopenia) or a blood clotting disorder? No Have you ever had a convulsion, seizure, epilepsy, neurologic condition or brain infection? No Do you have any stomach conditions? No Do you have severe renal or kidney impairment? No Do you have a history of mental health concerns? No Do you get yeast infections often? No Do you have psoriasis? No Do you get motion sickness? No Have you ever had headaches, nausea, vomiting, or breathing problems from altitude exposure? No MEDICINES Are you taking: Steroids, prednisone, anti-cancer drugs, or medicines that suppress your immune system? No Antibiotics or sulfonamides? No Oral contraceptives ( control pills)? No Aspirin therapy (children and teens)? No ALLERGIES Are you allergic to: Any medicines? No Any foods or other? No Neomycin, formalin, or fish products? 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 21 capsule 0 No Known Allergies EXAM: deferred Immunizations discussed include: Hepatitis A, Typhoid, Yellow Fever, and Meningococcus (declined all but yellow fever) Malaria prophylaxis recommended: Malarone Symptomatic treatment for traveler's diarrhea: bismuth subsalicylate, loperamide/diphenoxylate, andazithromycin ASSESSMENT/PLAN: (Z71.84) Encounter for counseling for travel (primary encounter diagnosis) Comment: Yellow fever vaccines today. Patient will return or follow-up with PCP as needed. Prophylaxis given for Traveler's diarrhea and Malaria. All questions were answered. Patient was informed that vaccines may not be covered and should check with insurance company to be sure. They have decided to proceed with vaccines ordered today. Plan: atovaquone-proguanil (MALARONE) 250-100 MG tablet, azithromycin (ZITHROMAX) 500 MG tablet (Z23) Need for immunization against yellow fever Comment: Plan: YELLOW FEVER, LIVE SQ I have reviewed general recommendations for safe travel including: food/water precautions, insect avoidance, safe sex practices given high prevalence of HIV and other STDs, roadway safety. Educational materials and links to the [facility] Traveler's health website have been provided. Total time 14 minutes, greater than 50 percent in counseling and coordination of care. documented in this encounter Plan of Treatment Upcoming Encounters Date Type Department Care Team (Late st Contact Info) Description 01/25/2025 8:30 AM CDT Virtual Visit [facility] [address] [place] [phone] Barbara Brennan PA-C [address] [place], [place] [phone] documented as of this encounter Visit Diagnoses Diagnosis Encounter for counseling for travel- Primary Need for immunization against yellow fever Need for prophylactic vaccination and inoculation against yellow fever documented in this encounter Care Teams Oceanography Teacher Relationship Specialty Start Date End Date Blossom Matos MD [address] [place] [address] PCP - General Internal Medicine 02/17/13 Barbara Brennan PA-C [address] [place] [address] Physician Supervisor Border Department Physician Supervisor Border Department - Medical 06/02/24 Barbara Brennan PA-C [address] [place] [address] Assigned Gastroenterology Provider 08/15/24 Fatmata Waggoner RPH Pharmacist 08/25/24 Fatmata Waggoner RPH Assigned [facility] Pharmacist 09/12/24 documented as of this encounter
--- OUTSIDE RECORDS SUMMARY | 2024-11-18 22:29 | XMS_ITS | Encounter Summary ---
Author Organization [facility] Address [address] [facility] [place] [address] Care Team Providers Care Shipping Assistant Name Role Phone Blossom Matos MD Primary Care P rovider Barbara Brennan-C Unavailable Barbara Brennan-C Unavailable Fatmata Waggoner RPH Unavailable Unavailable Fatmata Waggoner RPH Unavailable Unavailable Ewelina Cerrato MD Unavailable [phone] Reason for Visit * Reason Onset Date Comments Medication Question 09/01/2024 Encounter Details Date Type Department Care Team (Late st Contact Info) Description 09/01/2024 Telephone [facility] [place] [address] [facility] [address] [place] [phone] Barbara Brennan PA-C [address] [place] [address] Medication Question Social History Tobacco Use Types Packs/Day Years Used Date Smoking Tobacco: Never Smokeless Tobacco: Never Alcohol Use Standard Drinks/Week Comments No 0 (1 standard drink = 0.6 oz pur e alcohol) PHQ-2 Answer Date Recorded PHQ-2 Score 1 08/12/2024 [place] Depression Scale Answer Date Recorded [place] Depression Score 0 07/31/2019 Last EPDS Self Harm Result Not on file 07/31 Comments No Sex and Gender Information Value Date Recorded Sex Assigned at Not on file 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 She is on day 10 of H. pylori treatment today, and notes she is very dizzy and continues to be nauseous. She did start to crush the bismuth rather than chew it, which has somewhat helped. She would like to discontinue therapy today which is appropriate since side effects are bothersome and 10 days of therapy is sufficient. We re-scheduled her follow up appointment for earlier to discuss eradication testing. * Telephone Encounter - Fatmata Waggoner RPH - 09/01/2024 10:52 AM CDT Called Rosalina and evaluated current symptoms related to H. pylori therapy regimen. She notes constant nausea but no vomiting. She declines anti-nausea medication such as ondansetron at this time asshe would prefer not to take more pills. Expressed importance of trying to complete as many days oftherapy as possible. Patient expressed understanding. Will try to finish 14 days of therapy, but did discuss stopping at 10 days if side effects are not tolerable. For the chewable tablets, advised patient she can crush tablets and mix with small amount of water or a bite of food, that way she does not have to chew the medication or taste it for as long. She will plan to try this. Re-sent [employer] activation link per patient request. She plans to sign up for this and I will plan to check in via [employer] message or phone call in 3-5 days. * Telephone Encounter - Leigh Ann Muro RN - 09/01/2024 10:25 AM CDT Spoke with the patient and she has taken the meds as prescribed for the last 5 days and over the last 2 days she is experiencing some symptoms. She is bloated and has abdominal discomfort to the point that she has not been able to sleep for the last 2 nights, she has nausea and is having a hard time chewing the pepto. It makes her salivate more when chewing and at times is gagging * Telephone Encounter - Wiley Ulloa - 09/01/2024 9:55 AM CDT [facility] Call Center Phone Message May a detailed message be left on voicemail: yes Reason for Call: Other: Pt is calling in asking for a call back from her care team, as she has questions regarding the dosage on her medications that have been prescribed. Please call back as soon aspossible to discuss. Action Taken: Message routed to: [facility] GI Travel Screening: Not Applicable Date of Service: documented in this encounter Plan of Treatment Upcoming Encounters Date Type Department Care Team (Late st Contact Info) Description 01/25/2025 8:30 AM CDT Virtual Visit [facility] [address] [place] [address] Barbara Brennan PA-C [address] [place], [place] [phone] documented as of this encounter Visit Diagnoses Not on filedocumented in this encounter Care Teams Shipping Assistant Relationship Specialty Start Date End Date Blossom Matos MD [address] [place], [place] [phone] PCP - General Internal Medicine 02/17/13 Barbara Brennan PA-C [address] [place], [place] [phone] Physician General Service Technician Physician General Service Technician - Medical 06/02/24 Barbara Brennan PA-C [address] [place] [address] Assigned Gastroenterology Provider 08/15/24 Fatmata Waggoner [facility] Pharmacist 08/25/24 Fatmata Waggoner [facility] Assigned [place] Pharmacist 09/12/24 Ewelina Cerrato MD [address] [address] Assigned Neuroscience Provider 11/12/24 documented as of this encounter
--- OUTSIDE RECORDS SUMMARY | 2024-11-18 22:29 | XMS_ITS | Clinical Summary ---
Author Organization [facility] Address [address], [place] [address] Care Team Providers Care Cheese Grader Name Role Phone Found, No Pcp MD Primary Care Provider Unavailab le Source Comments You are receiving this document as you are listed as the primary care provider,follow-up provider, or the patient has been referred to you for consultation.This is in compliance with the Medicare and[facility] EHR Incentive Program,which states Providers who transition their patient to another setting of careor provider of care or refers their patient to another provider of care shouldprovide summary care record for each transition of care or referral. [facility] Allergies No known active allergies Medications acetaminophen (TYLENOL) 325 MG tablet Take 325-650 mg by mouth every 4 hours as needed for Pain. Active Social History Tobacco Use Types Packs/Day Years Used Date Smoking Tobacco: Never Comments Unknown Sex and Gender Information Value Date Recorded Sex Assigned at Not on file Legal Sex Female 9:24 AM CDT Gender Identity Not on file Sexual Orientation Not on file Last Filed Vital Signs Vital Sign Reading Time Taken Comments Blood Pressure 118/72 02/22/2016 12:01 PM CDT Pulse 96 02/22/2016 12:01 PM CDT Temperature 37.3 C (99.1 F) 02/22/2016 12:01 PM CDT Respiratory Rate 18 02/22/2016 9:35 AM CDT Oxygen Saturation 97% 02/22/2016 9:35 AM CDT Inhaled Oxygen Concentration - - Weight - - Height - - Body Mass Index - - Plan of Treatment Health Maintenance Due Date Last Done Comments Cervical Cancer Screening Due 1983 Hep C Screening (Preventive Services) 1983 Mammogram 1983 HIV Screening (Preventive Services) 1999 Adult Preventive Visit 2001 DTaP/Tdap/Td Vaccine (1 - Tdap) 2002 HepB Vaccine (1) 2002 COVID-19 Vaccine (1 - 2023-2 5 season) 2024 Influenza Vaccine (Season Ended) 2025 Zoster/Shingles Vaccine (1 of 2) 2033 HPV Vaccine Aged Out No longer eligi ble based on patient's age to complete this topic HepA Vaccine Aged Out No longer eligi ble based on patient's age to complete this topic Hib Vaccine Aged Out No longer eligi ble based on patient's age to complete this topic IPV (Polio) Vaccine Aged Out No longe r eligible based on patient's age to complete this topic MCV4 Vaccine Aged Out No longer eligi ble based on patient's age to complete this topic Meningococcal B Vaccine Aged Out No l onger eligible based on patient's age to complete this topic Pneumococcal Vaccine Aged Out No long er eligible based on patient's age to complete this topic Care Teams Cheese Grader Relationship Specialty Start Date End Date Found, No Pcp, [address] [place] [address] PCP - General 11/13/17
--- OUTSIDE RECORDS SUMMARY | 2024-11-18 22:29 | XMS_ITS | Encounter Summary ---
Author Organization [place] Address [address] [facility] [place] [address] Care Team Providers Care Pediatric Clinical Dietician Name Role Phone Blossom Matos MD Primary Care P rovider Josephine Parmar APRN MOUTHPIECE MAKER Unavailable Un available Kevin Silvestre MD Unavailable [phone] Abdirashid Sanabria MD Unavailable [phone] Dayanara Bishop MD Unavailable [phone] Barbara Brennan PA-C Unavailable Barbara Brennan PA-C Unavailable Fatmata Waggoner RPH Unavailable Unavailable Fatmata Waggoner RPH Unavailable Unavailable Ewelina Cerrato MD Unavailable [phone] Reason for Referral * (Routine) - Closed Specialty Diagnoses / Procedures [facility] Referred To Contact Diagnoses related condition, antepartum Kevin Silvestre MD Phone: tel: fax: Referral ID Status Reason Start Date Expiration Date Visits Re quested Visits Authorized [id number] Closed 03/22/2019 03/21/2020 1 1 * Diagnostic Imaging Ultrasound (Routine) - Closed Specialty Diagnoses / Procedures [facility] Referred To Contact Diagnoses related condition, antepartum Procedures [facility] US Comprehensive Single Kevin Silvestre MD Phone: tel: fax: Referral ID Status Reason Start Date Expiration Date Visits Re quested Visits Authorized [id number] Closed 03/22/2019 03/21/2020 1 1 Encounter Details Date Type Department Care Team (Late st Contact Info) Description 03/22/2019 Transcribe Orders [facility] [place] [address] [place] [phone] Kevin Silvestre MD [address] [place] [address] related condition, antepartum (Primary Dx) Social History Tobacco Use Types Packs/Day Years Used Date Smoking Tobacco: Never Smokeless Tobacco: Never Alcohol Use Standard Drinks/Week Comments No 0 (1 standard drink = 0.6 oz pur e alcohol) PHQ-2 Answer Date Recorded PHQ-2 Score 0 06/22/2018 Comments Yes Sex and Gender Information Value Date Recorded Sex Assigned at Not on file 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 Gender Identity Not on file Sexual Orientation Not on file 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 on file documented as of this encounter Plan of Treatment Upcoming Encounters Date Type Department Care Team (Late st Contact Info) Description 01/25/2025 8:30 AM CDT Virtual Visit [facility] [address] [place] [address] Barbara Brennan PA-C [address] [place] [address] Scheduled Referrals Name Type Priority Associated Diagnoses Orde r Schedule [facility] Genetic Counseling Referral Routine related condition, antepartum 1 Occurrences starting 03/22/2019 until 06/21/2019 documented as of this encounter Results * [facility] Comprehensive Single (04/07/2019 10:55 AM CDT) Anatomical Region Laterality Modality Ultrasound 04/07/2019 10:1 9 AM CDT Impressions 04/08/2019 2:27 PM CDT IMPRESSION ----- 1) Intrauterine at 18 3/7 weeks gestational age. 2) None of the anomalies commonly detected by ultrasound were evident in the detailed anatomic survey described above. There are no markers for aneuploidy. 3) Growth parameters and estimated weight were consistent with an appropriate for gestation age pattern of growth. 4) The amniotic fluid volume appeared normal. Narrative 04/08/2019 2:27 PM CDT Comprehensive ----- Pat. Name: ORA AGUDELO Study Date: 04/07/2019 10:19am Pat. NO: [id number] Referring MD: KEVIN SILVESTRE Site: [facility] Professional: Senait Arana RDMS : 1985 Age: 34 ----- INDICATION ----- Advanced Maternal Age--Multigravida. Declines aneuploidy screening. METHOD ----- Transabdominal ultrasound examination. View: Sufficient ----- Chang . Number of fetuses: 1 DATING ----- Date Details Gest. age PALLAVI LMP 12/15/2018 16 w + 1 d 09/21/2019 Prior assessment 03/17/2019 GA: 15 w + 3 d 18 w + 3 d 09/05/2019 U/S 04/07/2019 based upon AC, BPD, Femur, HC 18 w + 2 d 09/06/2019 Assigned dating Dating performed on 04/07/2019, based on the prior assessment (on 03/17/2019) 18 w + 3 d 09/05/2019 GENERAL EVALUATION ----- Cardiac activity present. FHR 150 bpm. movements present. Presentation Variable. Placenta posterior, no previa. Umbilical cord 3 vessel cord. Amniotic fluid Amount of AF: normal. MVP 3.4 cm. BIOMETRY ----- Main Biometry: BPD 37.6 mm 17w 3d Hadlock OFD 52.3 mm 17w 4d Nicolaides HC 144.8 mm 17w 5d Hadlock Cerebellum tr 18.5 mm 18w 2d Nicolaides AC 140.7 mm 19w 3d Hadlock Femur 28.2 mm 18w 4d Hadlock Humerus 28.2 mm 19w 1d Karolina Weight Calculation: EFW 262 g EFW (lb,oz) 0 lb 9 oz EFW by Hadlock ([id number]) Head / Face / Neck Biometry: Racing Manager 6.1 mm CM 4.5 mm Nasal bone 6.0 mm Nuchal fold 3.4 mm ANATOMY ----- The following structures appear normal: Head / Neck Cranium. Head size. Head shape. Lateral ventricles. Choroid plexus. Midline falx. Cavum septi pellucidi. Cerebellum. Cisterna magna. Parenchyma. Thalami. Vermis. Neck. Nuchal fold. Face Lips. Profile. Nose. Maxilla. Mandible. Orbits. Lens. Heart / Thorax 4-chamber view. RVOT view. LVOT view. Situs. Aortic arch view. Bicaval view. Ductal arch view. Superior vena cava. Inferior vena cava. 3-vessel view. 5-xoyzcd-odxywlc view. Cardiac position. Cardiac size. Cardiac rhythm. Right lung. Left lung. Diaphragm. Abdomen Abdominal wall. Cord insertion. Stomach. Kidneys. Bladder. Liver. Bowel. Genitals. Spine Cervical spine. Thoracic spine. Lumbar spine. Sacral spine. Extremities / Skeleton Right arm. Right hand. Left arm. Left hand. Right leg. Right foot. Left leg. Left foot. Gender: male. MATERNAL STRUCTURES ----- Cervix Visualized Appearance: Appears Closed Cervical length 38.4 mm Right Ovary Visualized Left Ovary Not visualized RECOMMENDATION ----- We discussed the findings on today's ultrasound with the patient. Further ultrasound studies as clinically indicated. Procedure Note Shiva Lee MD - 04/08/2019 Comprehensive ----- Pat. Name:Chino AGUDELO Date:04/07/2019 10:19am Pat. NO: [id number] MD:KEVIN SILVESTRE [facility]Senait Arana RDMS :1985Age:34 ----- INDICATION ----- Advanced Maternal Age--Multigravida. Declines aneuploidy screening. METHOD ----- Transabdominal ultrasound examination. View: Sufficient ----- Chang . Number of fetuses: 1 DATING ----- DateDetailsGest. age PALLAVI LMP 12/15/201816 w + 1 d 09/21/2019 Prior assessment 03/17/2019 GA: 15 w+ 3 d18 w + 3 d 09/05/2019 U/S 04/07/2019based upon AC, BPD, Femur, HC18 w + 2 d 09/06/2019 Assigned dating Dating performed on 04/07/2019, based onthe prior assessment (on 03/17/2019) 18 w + 3 09/05/2019 GENERAL EVALUATION ----- Cardiac activity present. FHR 150 bpm. movements present. Presentation Variable. Placenta posterior, no previa. Umbilical cord 3 vessel cord. Amniotic fluid Amount of AF: normal. MVP 3.4 cm. BIOMETRY ----- Main Biometry: BPD 37.6 mm17w 3d Hadlock OFD 52.3 mm17w 4d Nicolaides HC 144.8 mm17w 5d Hadlock Cerebellum tr 18.5 mm18w 2d Nicolaides AC 140.7 mm19w 3d Hadlock Femur 28.2 mm18w 4d Hadlock Humerus 28.2 mm19w 1d Karolina Weight Calculation: EFW 262 g EFW (lb,oz) 0 lb 9 oz EFW by Hadlock ([id number]) Head / Face / Neck Biometry: Racing Manager 6.1 mm CM 4.5 mm Nasal bone 6.0 mm Nuchal fold 3.4 mm ANATOMY ----- The following structures appear normal: Head / Neck Cranium. Head size. Head shape.Lateral ventricles. Choroid plexus. Midline falx. Cavum septi pellucidi.Cerebellum. Cisterna magna. Parenchyma. Thalami. Vermis. Neck. Nuchal fold. Face Lips. Profile. Nose. Maxilla.Mandible. Orbits. Lens. Heart / Thorax 4-chamber view. RVOT view. LVOT view.Situs. Aortic arch view. Bicaval view. Ductal arch view. Superior venacava. Inferior vena cava. 3-vessel view. 9-pmppye-hyyclii view.Cardiac position. Cardiac size. Cardiac rhythm. Right lung. Left lung.Diaphragm. Abdomen Abdominal wall. Cord insertion.Stomach. Kidneys. Bladder. Liver. Bowel. Genitals. Spine Cervical spine. Thoracic spine.Lumbar spine. Sacral spine. Extremities / Skeleton Right arm. Right hand. Left arm. Lefthand. Right leg. Right foot. Left leg. Left foot. Gender: male. MATERNAL STRUCTURES ----- Cervix Visualized Appearance: Appears Closed Cervical length 38.4 mm Right Ovary Visualized Left Ovary Not visualized RECOMMENDATION ----- We discussed the findings on today's ultrasound with the patient. Further ultrasound studies as clinically indicated. IMPRESSION ----- 1) Intrauterine at 18 3/7 weeks gestational age. 2) None of the anomalies commonly detected by ultrasound were evident inthe detailed anatomic survey described above. There are no markersfor aneuploidy. 3) Growth parameters and estimated weight were consistent with anappropriate for gestation age pattern of growth. 4) The amniotic fluid volume appeared normal. us Kevin Silvestre MD [facility] ORDERABLES Edited R esult - Final documented in this encounter Visit Diagnoses Diagnosis related condition, antepartum- Primary related condition, antepartum documented in this encounter Care Teams Pediatric Clinical Dietician Relationship Specialty Start Date End Date Blossom Matos MD [address] [place] [address] PCP - General Internal Medicine 02/17/13 Josephine Parmar APRN MOUTHPIECE MAKER Assigned PCP 07/12/18 06/23/21 Kevin Silvestre MD [address] [place] [address] Assigned OBGYN Provider 04/14/20 Abdirashid Sanabria MD [address] [place] [address] Assigned Surgical Provider 04/14/20 Dayanara Bishop MD [address] [place] [address] Assigned OBGYN Provider 01/05/21 1 Barbara Brennan PA-C [address] [place], [place] [address] Physician Chemical Treatment Plant Technician Physician Chemical Treatment Plant Technician - Medical 06/02/24 Barbara Brennan PA-C [address] [place], [place] [address] Assigned Gastroenterology Provider 08/15/24 Fatmata Waggoner RP Pharmacist 08/25/24 Fatmata Waggoner RPH Assigned [place] Pharmacist 09/12/24 Ewelina Cerrato MD [address] [facility] [address] [place] [address] Assigned Neuroscience Provider 11/12/24 documented as of this encounter
--- OUTSIDE RECORDS SUMMARY | 2024-11-18 22:29 | XMS_ITS | Encounter Summary ---
Author Organization [place] Address [address] [place] [address] Care Team Providers Care Floral Artist Name Role Phone Blossom Matos MD Primary Care P rovider Barbara Brennan PA-C Unavailable Barbara Brennan-C Unavailable Fatmata Waggoner RPH Unavailable Unavailable Fatmata Waggoner RPH Unavailable Unavailable Reason for Visit * Reason Onset Date Comments Appointment 11/11/2024 Encounter Details Date Type Department Care Team ([facility] st Contact Info) Description 11/11/2024 Telephone [facility] [place] [address] [facility] [address] [place] [address] Barbara Brennan PA-C [address] [place] [address] Appointment Social History Tobacco Use Types Packs/Day Years Used Date Smoking Tobacco: Never Passive Smoke Exposure: Never Smokeless Tobacco: Never Passive Exposure Comments:pe r pt Alcohol Use Standard Drinks/Week Comments No 0 (1 standard drink = 0.6 oz pur e alcohol) PHQ-2 Answer Date Recorded PHQ-2 Score 0 11/09/2024 [place] Depression Scale Answer Date Recorded [place] Depression Score 0 07/31/2019 Last EPDS Self [...] on file 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 Gender Identity Not on file Sexual Orientation Not on file 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 on file documented as of this encounter Miscellaneous Notes * Telephone Encounter - Monika Zepeda - 11/11/2024 11:25 AM CDT Patient Contacted and scheduled the following: Appointment type: Return Provider: SERGO Blas Return date: 01/25 Specialty phone number: [phone] documented in this encounter Plan of Treatment Upcoming Encounters Date Type Department Care Team (Late st Contact Info) Description 01/25/2025 8:30 AM CDT Virtual Visit [facility] [address] [phone] Barbara Brennan PA-C [address] [place] [address] documented as of this encounter Visit Diagnoses Not on filedocumented in this encounter Care Teams Floral Artist Relationship Specialty Start Date End Date Blossom Matos MD [address] [place], [place] [address] PCP - General Internal Medicine 02/17/13 Barbara Brennan PA-C [address] [place], [place] [address] Physician Lot Porter Physician Lot Porter - Medical 06/02/24 Barbara Brennan PA-C [address] [place] [address] Assigned Gastroenterology Provider 08/15/24 Fatmata Waggoner RPH Pharmacist 08/25/24 Fatmata Waggoner RPH Assigned [facility] Pharmacist 09/12/24 documented as of this encounter
--- OUTSIDE RECORDS SUMMARY | 2024-11-18 22:29 | XMS_ITS | Encounter Summary ---
Author Organization [place] Address [address] [facility] [place] [address] Care Team Providers Care Shield Installer Name Role Phone Blossom Matos MD Primary Care P rovider Barbara Brennan PA-C Unavailable Barbara Brennan-C Unavailable Fatmata Waggoner RPH Unavailable Unavailable Fatmata Waggoner RPH Unavailable Unavailable Encounter Details Date Type Department Care Team (Latest Contact Info) Description 10/22/2024 Travel Social History Tobacco Use Types Packs/Day Years Used Date Smoking Tobacco: Never Passive Smoke Exposure: Never Smokeless Tobacco: Never Passive Exposure Comments:pe r pt Alcohol Use Standard Drinks/Week Comments No 0 (1 standard drink = 0.6 oz pur e alcohol) PHQ-2 Answer Date Recorded PHQ-2 Score 1 08/12/2024 [place] Depression Scale Answer Date Recorded [place] Depression Score 0 07/31/2019 Last EPDS Self Harm Result Not on file 07/31 Comments No Sex and Gender Information Value Date Recorded Sex Assigned at Not on file 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 Gender Identity Not on file Sexual Orientation Not on file 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 on file documented as of this encounter Plan of Treatment Upcoming Encounters Date Type Department Care Team (Late st Contact Info) Description 01/25/2025 8:30 AM CDT Virtual Visit [facility] [address] [place] [phone] Barbara Brennan PA-C [address] [place] [address] documented as of this encounter Visit Diagnoses Not on filedocumented in this encounter Care Teams Shield Installer Relationship Specialty Start Date End Date Blossom Matos MD [address] [place] [address] PCP - General Internal Medicine 02/17/13 Barbara Brennan PA-C [address] [place] [address] Physician Reset Merchandiser Physician Reset Merchandiser - Medical 06/02/24 Barbara Brennan PA-C [address] [place] [address] Assigned Gastroenterology Provider 08/15/24 Fatmata Waggoner RPH Pharmacist 08/25/24 Fatmata Waggoner RPH Assigned [facility] Pharmacist 09/12/24 documented as of this encounter
--- OUTSIDE RECORDS SUMMARY | 2024-11-18 22:29 | XMS_ITS | Clinical Summary ---
Author Organization [place] Address [address] [facility] [place] [address] Care Team Providers Care Surveillance Specialist Name Role Phone Blossom Matos MD Primary Care P rovider Phyllis Pak PA-C Unavailable Phyllis Pak-James Unavailable Fatmata Waggoner RPH Unavailable Unavailable Fatmata Waggoner RPH Unavailable Unavailable Ewelina Cerrato MD Unavailable [phone] Allergies No known active allergies Medications indomethacin (INDOCIN) 25 MG capsuleIndicati ons:Metacarpoph alangeal joint pain of left hand Take 1 capsule (25 mg) by mouth 3 times daily (with meals) for 7 days. 21 capsule 09/27/2024 Active atovaquone-prog uanil (MALARONE) 250-100 MG tabletIndicatio ns:Encounter for counseling for travel Take 1 tablet by mouth daily. Start 2 days before travel and continue 7 days after return. 58 tablet 10/26/2024 Active azithromycin (ZITHROMAX) 500 MG tabletIndicatio ns:Encounter for counseling for travel Take one tablet daily for up to 3 days as needed for traveler's diarrhea 3 tablet 10/26/2024 Active Active Problems Problem Noted Date Diagnosed Date Cholecystitis 08/12/2019 Overview (08/12/2019): Added automatically from request for surgery [id number] Indication for care or inter vention related to labor and delivery 07/29/2019 Vacuum-assisted vaginal delivery 07/29/2019 labor 07/28/2019 Cholelithiasis affecting pre gnancy in third trimester, antepartum 07/05/2019 Previous section 06/07/2019 Overview (06/07/2019): Added automatically from request for surgery [id number] History of delivery, currently 03/22/2019 Hx successful (vaginal after ), currently 03/22/2019 AMA (advanced maternal age) multigravida 35+ Cervical high risk HPV (human papillomavirus) te st positive 03/13/2017 Overview (03/31/2019): 03/13/17 NIL, +HR HPV, not 16/18. Plan 1 yr co-test 06/23/18 Lost to follow-up for pap tracking 03/22/19 NIL pap, neg HR HPV. Plan 3 year cotest S/P thyroidectomy 03/30/2015 Thyroid nodule 05/07/2013 Multiple thyroid nodules 04/09/2013 Previous delivery, antepartum condition or complication 05/27/2011 Overview (05/27/2011): Repeat c/s x 2. I discussed with the patient the group's policy not to do 's and that due to her previous section we would offer a repeat section if she choses care with our group. CARDIOVASCULAR SCREENING; LDL GOAL LESS THAN 160 04/22/2010 Multinodular non-toxic goiter Resolved Problems Problem Noted Date Diagnosed Date Resolved Date , delivered, current hospitalization 12/01/2011 03/22/2019 Encounters Date Type Department Care Team Description 11/11/[address] [facility] [address] 4[address] [place] [address] Phyllis Pak PA-C Appointment 10/26/2024 10:00 AM CDT Office Visit [address] [address] Gilles Reed PA-C Encounter for counseling for travel (Primary Dx); Need for immunization against yellow fever 10/26/2024 Travel 10/22/2024 9:25 AM CDT Ancillary Procedure [place] [address] [place] [phone] Ewelina Cerrato MD Metacarpophalangeal joint pain of left hand 10/22/2024 9:20 AM CDT Office Visit [facility] Sports Medicine [address] [place] [phone] Robby Rondon DO Abdul, Temilola Y, MD De Quervain's disease (radial styloid tenosynovitis) (Primary Dx); Peroneal tendonitis of left lower extremity; Left wrist pain 10/22/2024 Travel 10/11/2024 9:00 AM CDT Virtual Visit [address] [address] Phyllis Pak PA-C Olson, Krista L, RPH 09/27/2024 2:45 PM CDT Office Visit [facility] Urgent [facility] [address] [phone] Robby Rondon DO Metacarpophalangeal joint pain of left hand (Primary Dx); H. pylori infection 09/27/2024 Travel 09/13/2024 9:00 AM CDT Virtual Visit [address] [phone] Phyllis Pak PA-C Olson, Krista L, RPH H. pylori infection (Primary Dx) 09/01/[address] [facility] [address] [place] [address] Phyllis Pak PA-C Medication Question 08/30/[address] [facility] Hepatology Clinic [address] [phone] Selvin Rain MD 08/26/[address] [facility] [address] 4[address] [place] [phone] Phyllis Pak PA-C Medication Request 08/26/[address] [facility] [address] [place] [phone] Phyllis Pak PA-C Call Back; Medication Question 08/25/2024 9:30 AM SECRETARIAL TEACHER Virtual Visit [facility] 2nd [place] [phone] Phyllis Pak PA-C Olson, Krista L, [facility] H. pylori infection (Primary Dx) 08/24/2024 11:00 AM SECRETARIAL TEACHER - 08/24/2024 11:30 AM SECRETARIAL TEACHER Surgery [facility] [address] [phone] Selvin Rain MD Esophagoscopy, gastroscopy, duodenoscopy (EGD), combined 08/24/2024 10:27 AM SECRETARIAL TEACHER - 08/24/2024 12:44 PM SECRETARIAL TEACHER Hospital Encounter [facility] [address] [phone] Selvin Rain MD Discharge Disposition: Home or Self Care from Last 3 Months Immunizations Immunization Administration Dates Next Due Influenza (IIV3) PF 07/21/2012 Influenza Vaccine >6 months,quad, PF 07/29/2019 MMR (MMRII) 10/15/2007,06/06/2005 TD,PF 7+ (Tenivac) 10/15/2007 TDAP Vaccine (Adacel) 06/07/2019,12/01/2011,10/22 Td (Adult), Adsorbed 06/06/2005 Yellow Fever 10/26/2024 Family History Medical History Relation Comments Cerebrovascular Disease Father Family History Negative Mother Relation Status Comments Father Alive Maternal Grandfather Maternal Grandmother Mother Alive Paternal Grandfather Paternal Grandmother Social History Tobacco Use Types Packs/Day Years Used Date Smoking Tobacco: Never Passive Smoke Exposure: Never Smokeless Tobacco: Never Tobacco Cessation:Counseling Given: Not Answered Passive Exposure Comments:per pt Alcohol Use Standard Drinks/Week Comments No 0 (1 standard drink = 0.6 oz pur e alcohol) PHQ-2 Answer Date Recorded PHQ-2 Score 0 11/09/2024 [place] Depression Scale Answer Date Recorded [place] Depression Score 0 07/31/2019 Last EPDS Self [...] on file Legal Sex Female 5:08 AM SECRETARIAL TEACHER Gender Identity Not on file Sexual Orientation Not on file 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 on file Last Filed Vital Signs Vital Sign Reading Time Taken Comments Blood Pressure 117/73 10/26/2024 9:52 AM CDT Pulse 66 10/26/2024 9:52 AM CDT Temperature 36.3 C (97.3 F) 10/26/2024 9:52 AM CDT Respiratory Rate 12 10/26/2024 9:52 AM CDT Oxygen Saturation 99% 10/26/2024 9:52 AM CDT Inhaled Oxygen Concentration - - Weight 81.6 kg (180 lb) 11/09/2024 8:17 AM CDT Height 175.3 cm (5' 9) 11/09/2024 8:17 AM CDT Body Mass Index 26.58 11/09/2024 8:17 AM CDT Plan of Treatment Upcoming Encounters Date Type Department Care Team (Late st Contact Info) Description 01/25/2025 8:30 AM CDT Virtual Visit [facility]ology [facility] [address] [place] [address] Phyllis Pak PA-C [address] [place] [phone] Health Maintenance Due Date Last Done Comments ADVANCE CARE PLANNING 1985 ANNUAL REVIEW OF HM ORDERS 1985 MAMMO SCREENING 1985 HEPATITIS C SCREENING 2001 HEPATITIS B VACCINE (1 of 3 - 19+ 3-dose series) 2002 YEARLY PREVENTIVE VISIT 05/03/2012 05/03/2011 HPV FOLLOW-UP 03/22/2022 03/22/2019, 03/13/2017 PAP FOLLOW-UP 03/22/2022 03/22/2019, 02/22, 05/03/2011 DIABETES SCREENING 08/11/2022 08/11/2019, 1 08/16/2018, 05/08/2013, Additional history exists LIPID 2023 05/03/2011 COVID-19 VACCINE ( season) 2024 INFLUENZA VACCINE (Season Ended) 2025 07/29/2019, 06/22/2018 (Declined), 07/21/2012 DTAP/TDAP/TD VACCINE (6 - Td or Tdap) 06/07/2029 06/07/2019, 12/01/2011, 11/13/2009, Additional history exists ZOSTER VACCINE (1 of 2) 2033 HIV SCREENING Completed 03/17/2019, 05/20/2011 PAP Discontinued 03/22/2019, 02/22, 05/03/2011 PHQ-2 (once per calendar year) Completed 11/09/2024, 08/12/2024, 06/22/2018 HPV VACCINE Aged Out No longer eligi ble based on patient's age to complete this topic MENINGITIS VACCINE Aged Out No longer eligible based on patient's age to complete this topic PNEUMOCOCCAL VACCINE: PEDIATRICS (0 to 5 YEARS) AND AT-RISK PATIENTS (6 to 49 YEARS) Aged Out No longer eligible based on patient's age to complete this topic Procedures Procedure Name Priority Date/Time Associated Diagnosis Comments XR FOOT LEFT G/E 3 VIEWS Routine 10/22/2024 9:34 AM CDT Metacarpophalangeal joint pain of left hand XR HAND LEFT G/E 3 VIEWS Routine 10/22/2024 9:34 AM CDT Metacarpophalangeal joint pain of left hand HELICOBACTER PYLORI ANTIGEN STOOL Routine 10/12/2024 11:57 PM CDT H. pylori infection URIC ACID Routine 09/27/2024 2:55 PM CDT Metacarpophalangeal joint pain of left hand SURGICAL PATHOLOGY EXAM Routine 08/24/2024 11:28 AM SECRETARIAL TEACHER UGI ENDOSCOPY DIAG W BIOPSY 08/24/2024 11:06 AM SECRETARIAL TEACHER Epigastric pain Heartburn Esophageal dysphagia UPPER GI ENDOSCOPY Routine 08/24/2024 10 :55 AM SECRETARIAL TEACHER COMPREHENSIVE METABOLIC PANEL STAT 08/11/2019 12:42 AM SECRETARIAL TEACHER PAP IMAGED THIN LAYER, DIAGNOSTIC Routine 03/22/2019 2:18 PM CDT Cervical high risk HPV (human papillomavirus) test positive HPV HIGH RISK TYPES DNA CERVICAL Routine 03/22/2019 2:05 PM CDT Cervical high risk HPV (human papillomavirus) test positive HIV ANTIGEN ANTIBODY COMBO Routine 03/17/2019 1:58 PM CDT care, subsequent , unspecified trimester LIPID REFLEX TO DIRECT LDL PANEL Routine 05/03/2011 8:11 AM SECRETARIAL TEACHER Routine general medical examination at a health care facility from Last 3 Months or Most Recently Relevant to Health Maintenance Results * XR Hand Left G/E 3 Views (10/22/2024 9:34 AM CDT) Anatomical Region Laterality Modality Hand, Wrist Left Computed Radiogr aphy 10/22/2024 9:34 AM CDT Impressions 10/22/2024 5:40 PM CDT IMPRESSION: Normal joint spaces and alignment. No erosions. No fracture. Narrative 10/22/2024 5:40 PM CDT EXAM: XR HAND LEFT G/E 3 VIEWS LOCATION: [facility] DATE: 10/22/2024 INDICATION: Metacarpophalangeal joint pain of left hand COMPARISON: None. Procedure Note Bernda Silvestre MD - 10/22/2024 EXAM: XR HAND LEFT G/E 3 VIEWS LOCATION: [facility] DATE: 10/22/2024 INDICATION: Metacarpophalangeal joint pain of left hand COMPARISON: None. IMPRESSION: Normal joint spaces and alignment. No erosions. No fracture. Ewelina Cerrato MD [facility] ORDER PRAVEEN Final Result * XR Foot Left G/E 3 Views (10/22/2024 9:34 AM CDT) Anatomical Region Laterality Modality Foot, Ankle Left Computed Radiogr aphy 10/22/2024 9:34 AM CDT Impressions 10/22/2024 5:42 PM CDT IMPRESSION: Minimal degenerative arthritis first IP joint. Hindfoot valgus. No erosions. No fracture. Narrative 10/22/2024 5:42 PM CDT EXAM: XR FOOT LEFT G/E 3 VIEWS LOCATION: [facility] DATE: 10/22/2024 INDICATION: Pain COMPARISON: None. Procedure Note Brenda Silvestre MD - 10/22/2024 EXAM: XR FOOT LEFT G/E 3 VIEWS LOCATION: [facility] DATE: 10/22/2024 INDICATION: Pain COMPARISON: None. IMPRESSION: Minimal degenerative arthritis first IP joint. Hindfootvalgus. No erosions. No fracture. Ewelina Cerrato MD [facility] ORDER PRAVEEN Final Result * Helicobacter pylori Antigen Stool (10/12/2024 11:57 PM CDT) Pathologist [facility] Helicobacter pylori Antigen Stool Negative Negative 10/15/2024 10:46 AM CDT SPECIALTY LABS Comment:Negative for Helicob acter pylori antigen by enzyme immunoassay. A negative result indicates the absence of H. pylori antigen or that the level of antigen is below the level of detection. Stool RECTAL CONTENTS / Unknown Non-blood Collection / Unknown 10/12/2024 11:57 PM CDT 10/13/2024 4:38 PM CDT Phyllis Pak PA-C LAB - STOOLS ORDERABLES Final Re sult SPECIALTY CORE/PROT/ENDO [facility] Specialty Core/Prot/Endo [address] [facility] [address] [facility], Room [id number] [place] [address] SPECIALTY LABS Specialty Lab [address] [facility], [address] [phone] * Uric acid (09/27/2024 2:55 PM CDT) Pathologist [facility] Uric Acid 3.2 2.4 - 5.7 mg/dL 09/27/2024 10:13 PM CDT [facility] Blood BLOOD SPECIMEN / Unknown Venipuncture / Unknown 09/27/2024 2:55 PM CDT 09/27/2024 2:55 PM CDT Robby Rondon DO LAB - BLOOD ORDERABLES Final Result U LABORATORY [facility] [place] Core Lab [address] [facility], [address] [phone] * Surgical Pathology Exam (08/24/2024 11:28 AM SECRETARIAL TEACHER) Case Report Surgical Pathology Report Case: [id number] Authorizing Provider: Selvin Rain MD Collected: 08/24/2024 11:28 AM Ordering Location: [facility] Received: 08/24/2024 12:07 PM [facility] Pathologist: Pura Ibarra MD Specimens: A) - Stomach, Antrum, r/o H.pylori vs atrophic gastritis B) - Stomach, incisura-stomach r/o H.pylori vs atrophic gastritis C) - Stomach, lesser curvature- r/o H.pylori vs atrophic gastritis D) - Stomach, Greater Curvature, r/o H.pylori vs atrophic gastritis E) - Esophagus, Distal, r/o barretts/GERD F) - Esophagus, Mid, evaluate for eosinophilic esophagitis 08/27/2024 10:21 AM [facility] Final Diagnosis A: Stomach, antrum, biopsies: -Active chronic gastritis (marked) with Helicobacter pylori-like organisms present (special stain performed) -Single focus of intestinal metaplasia present B: Stomach, incisura, biopsies: -Active chronic gastritis (marked) with Helicobacter pylori-like organisms present (special stain performed) -No evidence of intestinal metaplasia or dysplasia C: Stomach, lesser curvature, biopsies: -Active chronic gastritis (marked) with Helicobacter pylori-like organisms present (special stain performed) -Tissue focally shows apparent small intestinal mucosa with Paneth cells (favor as part of sample from pylorus) D: Stomach, greater curvature, biopsies: -Oxyntic pattern mucosa with active chronic gastritis (mild), Helicobacter present on routine stain E: Esophagus, distal, biopsies: -Squamous mucosa without abnormalities -Columnar mucosa without evidence of intestinal metaplasia, moderate chronic inflammation present, Helicobacter pylori-like organisms identified on special stain -No evidence of dysplasia or malignancy F: Esophagus, mid, biopsies: -Normal squamous mucosa without abnormalities, no evidence of inflammation or columnar mucosa 08/27/2024 10:21 AM [facility] at [address] SECRETARIAL TEACHER Comment Most of the gastric biopsy samples, including antrum, incisura and lesser curvature, show intense inflammatory activity which displaces glandular structures by virtue of the amount of inflammation present. Gland destruction by the inflammatory process is not identified. There is considerable acute inflammation. The lymphoid component appears to be present deep in the tissue and there are some lymphoid follicles. Lymphoepithelial lesions are not appreciated. The endoscopy report did not describe a mass lesion. Features of malignant lymphoma are not present but follow-up endoscopy after eradication of H. pylori is suggested. Intradepartmental consultation performed with agreement. 08/27/2024 10:21 AM [facility] Clinical Information Procedure: Esophagoscopy, gastroscopy, duodenoscopy (EGD), combined Pre-op Diagnosis: Epigastric pain [R10.13] Heartburn [R12] Esophageal dysphagia [R13.19] Post-op Diagnosis: R10.13 - Epigastric pain [ICD-10-CM] R12 - Heartburn [ICD-10-CM] R13.19 - Esophageal dysphagia [ICD-10-CM] Excerpt from procedure note: The stomach mucosa was erythematous an possibly atrophic, and biopsies were obtained. 08/27/2024 10:21 AM [facility] Gross Description A(1). Stomach, Antrum, r/o H.pylori vs atrophic gastritis: The specimen is received in formalin, labeled with the patient's name, medical record number and other identifying information and designated s tomach, antrum . It consists of 4 toney soft tissue fragments ranging from 0.1-0.2 cm. Entirely submitted in one cassette. B(2). Stomach, incisura-stomach r/o H.pylori vs atrophic gastritis: The specimen is received in formalin, labeled with the patient's name, medical record number and other identifying information and designated s tomach-incisura . It consists of two toney soft tissue fragments, 0.1 and 0.2 cm. Entirely submitted in one cassette. C(3). Stomach, lesser curvature- r/o H.pylori vs atrophic gastritis: The specimen is received in formalin, labeled with the patient's name, medical record number and other identifying information and designated s tomach, lesser curvature . It consists of two toney soft tissue fragments, 0.1 and 0.3 cm. Entirely submitted in one cassette. D(4). Stomach, Greater Curvature, r/o H.pylori vs atrophic gastritis: The specimen is received in formalin, labeled with the patient's name, medical record number and other identifying information and designated s tomach, greater curvature . It consists of two toney soft tissue fragments, 0.2 and 0.3 cm. Entirely submitted in one cassette. E(5). Esophagus, Distal, r/o barretts/GERD: The specimen is received in formalin, labeled with the patient's name, medical record number and other identifying information and designated d istal esophagus . It consists of two toney soft tissue fragments, each 0.2 cm. Entirely submitted in one cassette. F(6). Esophagus, Mid, evaluate for eosinophilic esophagitis: The specimen is received in formalin, labeled with the patient's name, medical record number and other identifying information and designated m idesophagus . It consists of two toney soft tissue fragments, 0.2 and 0.3 cm. Entirely submitted in one cassette. (SERGO Griffin) 08/24/2024 12:19 PM 08/27/2024 10:21 AM [facility] Microscopic Description A-F. A formal microscopic examination has been performed. A special stain for Helicobacter pylori-like organisms was performed on gastric samples A, B, C and E and the results are as reported in the final diagnoses and comment. 08/27/2024 10:21 AM [facility] Performing Labs The technical component of this testing was completed at [facility]. Stain controls for all stains resulted within this report have been reviewed and show appropriate reactivity. 08/27/2024 10:21 AM [facility] Case Images 08/27/2024 10:21 AM [facility] Biopsy PYLORIC ANTRUM STRUCTURE / Unknown 08/24/2024 11:28 AM SECRETARIAL TEACHER 08/24/2024 12:07 PM SECRETARIAL TEACHER Specimen from unspecified body site obtained by biopsy (specimen) STOMACH STRUCTURE / Unknown 08/24/2024 11:31 AM SECRETARIAL TEACHER 08/24/2024 12:07 PM SECRETARIAL TEACHER Specimen from unspecified body site obtained by biopsy (specimen) STOMACH STRUCTURE / Unknown 08/24/2024 11:32 AM SECRETARIAL TEACHER 08/24/2024 12:07 PM SECRETARIAL TEACHER Specimen from unspecified body site obtained by biopsy (specimen) STRUCTURE OF GREATER CURVATURE OF STOMACH / Unknown 08/24/2024 11:33 AM SECRETARIAL TEACHER 08/24/2024 12:07 PM SECRETARIAL TEACHER Specimen from unspecified body site obtained by biopsy (specimen) STRUCTURE OF LOWER THIRD OF ESOPHAGUS / Unknown 08/24/2024 11:33 AM SECRETARIAL TEACHER 08/24/2024 12:07 PM SECRETARIAL TEACHER Specimen from unspecified body site obtained by biopsy (specimen) STRUCTURE OF MIDDLE THIRD OF ESOPHAGUS / Unknown 08/24/2024 11:34 AM SECRETARIAL TEACHER 08/24/2024 12:07 PM SECRETARIAL TEACHER Selvin PAIZ - YVAN ROSAS Final R esult LABORATORY [facility] [address], [address] [place] [address], [facility] [phone] * UPPER GI ENDOSCOPY (08/24/2024 10:55 AM SECRETARIAL TEACHER) Upper GI Endoscopy [address] [address] [place] [address] ___ Patient Name: Ora Harding Procedure Date: 08/24/2024 10:55 AM Date of : 1985 Admit Type: Outpatient Age: 39 Room: [place] [address] Note Status: Finalized Attending MD: SELVIN RAIN MD, Instrument Name: [id number] [id number] Gastroscope ___ Procedure: Upper GI endoscopy Indications: Heartburn Providers: SELVIN RAIN MD, Anahi Stephens RN Referring MD: PHYLLIS PAK Medicines: Midazolam 2 mg IV, Fentanyl 100 micrograms IV, Benzocaine spray Complications: No immediate complications. ___ Procedure: Pre-Anesthesia Assessment: - ASA Grade Assessment: II - A patient with mild systemic disease. After obtaining informed consent, the endoscope was passed under direct vision. Throughout the procedure, the patient's blood pressure, pulse, and oxygen saturations were monitored continuously. The endoscope 509 was introduced through the mouth, and advanced to the second part of duodenum. The upper GI endoscopy was accomplished without difficulty. The patient tolerated the procedure fairly well. Findings: The Z-line was irregular. Biopsies were taken with a cold forceps for histology. The remainder of the esophagus appeared normal (we took proximal biopsies for EoE). Diffuse erythematous mucosa was found in the stomach. The mucosa also appeared possibly atrophic. Biopsies were taken with a cold forceps for histology to rule out H. pylori or atrophic gastritis. The examined duodenum was normal. Moderate Sedation: Moderate (conscious) sedation was administered by the nurse and supervised by the endoscopist. The patient's oxygen saturation, heart rate, blood pressure and response to care were monitored. Total physician intraservice time was 12 minutes. Impression: EGD performed because of chronic heartburn symptoms. See the recent GI Clinic note by Ms. Pak. The patient reports that she tried Omeprazole for one week, but this did not help. The exam showed an irregular Z-line, possibly reflecting GERD, but no overt esophagitis. The stomach mucosa was erythematous and possibly atrophic, and biopsies were obtained. . Recommendation: (1) I suggest that she follow up with Ms. Pak in GI Clinic. Procedure Code(s): --- Professional --- 73765, Esophagogastroduode noscopy, flexible, transoral; with biopsy, single or multiple G0500, Moderate sedation services provided by the same physician or other qualified health careers adviser performing a gastrointestinal endoscopic service that sedation supports, requiring the presence of an independent trained observer to assist in the monitoring of the patient's level of consciousness and physiological status; initial 15 minutes of intra-service time; patient age 5 years or older (additional time may be reported with [address], as appropriate) Diagnosis Code(s): --- Professional --- K22.89, Other specified disease of esophagus K31.89, Other diseases of stomach and duodenum R12, Heartburn CPT copyright 2021 [employer]. All rights reserved. The codes documented in this report are preliminary and upon criminal justice social worker review may be revised to meet current compliance requirements. Selvin Rain MD SELVIN RAIN MD 08/24/2024 11:34:09 AM I was physically present for the entire viewing portion of the exam. SELVIN RAIN MD Number of Addenda: 0 Note Initiated On: 08/24/2024 10:55 AM Total Procedure Duration: 0 hours 10 minutes 26 seconds Scope In: 11:15:05 AM Scope Out: 11:25:31 AM RADIOLOGY RESULTS 08/24/2024 10:5 5 AM SECRETARIAL TEACHER Phyllis Pak PA-C PROCEDURES Final Result RADIOLOGY RESULTS * (ABNORMAL) Comprehensive metabolic panel (08/11/2019 12:42 AM SECRETARIAL TEACHER) Sodium 138 133 - 144 mmol/L 08/11/2019 12:58 AM [facility] Potassium 3.7 3.4 - 5.3 mmol/L 08/11/2019 12:58 AM [facility] Chloride 108 94 - 109 mmol/L 08/11/2019 12:58 AM [facility] Carbon Dioxide 25 20 - 32 mmol/L 08/11/2019 1:05 AM [facility] Anion Gap 5 3 - 14 mmol/L 08/11/2019 1:05 AM [facility] Glucose 113(H) 70 - 99 mg/dL 08/11/2019 1:05 AM [facility] Urea Nitrogen 17 7 - 30 mg/dL 08/11/2019 1:05 AM [facility] Creatinine 0.57 0.52 - 1.04 mg/dL 08/11/2019 1:05 AM [facility] GFR Estimate >90 >60 mL/min/{1. 73_m2} 08/11/2019 1:05 AM [facility] Comment: Non GFR Calc Starting 06/09/2018, serum creatinine based estimated GFR (eGFR) will be calculated using the Chronic Kidney Disease Epidemiology Collaboration (CKD-EPI) equation. GFR Estimate If Black >90 >60 mL/min/{1. 73_m2} 08/11/2019 1:05 AM [facility] Comment: GFR Calc Starting 06/09/2018, serum creatinine based estimated GFR (eGFR) will be calculated using the Chronic Kidney Disease Epidemiology Collaboration (CKD-EPI) equation. Calcium 9.0 8.5 - 10.1 mg/dL 08/11/2019 1:05 AM [facility] Bilirubin Total 0.2 0.2 - 1.3 mg/dL 08/11/2019 1:07 AM [facility] Albumin 2.7(L) 3.4 - 5.0 g/dL 08/11/2019 1:07 AM [facility] Protein Total 6.8 6.8 - 8.8 g/dL 08/11/2019 1:07 AM [facility] Alkaline Phosphatase 112 40 - 150 U/L 08/11/2019 1:07 AM [facility] ALT 49 0 - 50 U/L 08/11/2019 1:07 AM [facility] AST 79(H) 0 - 45 U/L 08/11/2019 1:07 AM [facility] Blood specimen (specimen) 08/11/2019 12:42 AM SECRETARIAL TEACHER 08/11/2019 12:46 AM [facility] Serjio Yepez MD LAB - BLOOD ORDERABLES Fi nal Result [facility] [address] [place] [address], [facility] [phone] * PAP imaged thin layer, diagnostic (03/22/2019 2:18 PM CDT) PAP NIL COPATH Copath Report Patient Name: ORA HARDING MR#: [id number] Specimen #: [id number] Collected: 03/22/2019 Received: 03/23/2019 Reported: 03/24/2019 14:38 Ordering Phy(s): KEVIN SILVESTRE For improved result formatting, select 'View Enhanced Report Format' under Linked Documents section. SPECIMEN/STAIN PROCESS: Pap Imaged thin layer prep diagnostic (SurePath, FocalPoint with guided screening) Pap-Cyto x 1, HPV ordered x 1 SOURCE: Cervical, endocervical Pap Imaged thin layer prep diagnostic (SurePath, FocalPoint with guided screening) SPECIMEN ADEQUACY: Satisfactory for evaluation. -Transformation zone component present. CYTOLOGIC INTERPRETATION: Negative for intraepithelial lesion or malignancy Electronically signed out by: JANELL Zapata (ASCP) CLINICAL HISTORY: LMP: 12/15/18 , A previous normal pap Date of Last Pap: 03/13/17, History of positive HPV, Papanicolaou Test Limitations: Cervical cytology is a screening test with limited sensitivity; regular screening is critical for cancer prevention; Pap tests are primarily effective for the diagnosis/preventi on of squamous cell carcinoma, not adenocarcinomas or other cancers. COLLECTION SITE: Client: [facility] Location: [facility] () The technical component of this testing was completed at the [facility], with the professional component performed at the [facility], [address] [place] [phone] ([phone]) COPATH Cytologic material (specimen) 03/22/2019 2:18 PM CDT 03/23/2019 7:57 AM CDT Kevin Silvestre MD LAB - OPTIME CLINICAL SPECIMEN Final Result COPATH * HPV High Risk Types DNA Cervical (03/22/2019 2:05 PM CDT) HPV Source SurePath 03/22/2019 2:18 PM CDT [facility] HPV 16 DNA Negative NEG^Nega tive 03/29/2019 11:59 AM CDT [facility] HPV 18 DNA Negative NEG^Nega tive 03/29/2019 11:59 AM CDT [facility] Other HR HPV Negative NEG^Nega tive 03/29/2019 11:59 AM CDT [facility] Final Diagnosis This patient's sample is negative for HPV DNA. 03/29/2019 11:59 AM CDT [facility] Comment: This test was developed and its performance characteristics determined by the [facility], Molecular Diagnostics Laboratory. It has not been cleared or approved by the FDA. The laboratory is regulated under CLIA as qualified to perform high-complexity testing. This test is used for clinical purposes. It should not be regarded as investigational or for research. (Note) METHODOLOGY: The Julius bal 4800 system uses automated extraction, simultaneous amplification of HPV (L1 region) and beta-globin, followed by real time detection of fluorescent labeled HPV and beta globin using specific oligonucleotide probes . The test specifically identifies types HPV 16 DNA and HPV 18 DNA while concurrently detecting the rest of the high risk types (31, 33, 35, 39, 45, 51, 52, 56, 58, 59, 66 or 68). COMMENTS: This test is not intended for use as a screening device for women under age 30 with normal cervical cytology. Results should be correlated with cytologic and histologic findings. Close clinical followup is recommended. Specimen Description Cervical Cells 03/22/2019 2:18 PM CDT [facility] Comment:[id number] Cervical Cells CERVIX UTERI STRUCTURE / Unknown 03/22/2019 2:05 PM CDT 03/22/2019 2:44 PM CDT Kevin Silvestre MD LAB - BLOOD ORDERABLES Final R esult Performing Organization Address City/[facility]/ZIP Co de Phone Number [address] [address] [place] [address] [address] [facility] [address] [place] [address] * HIV Antigen Antibody Combo (03/17/2019 1:58 PM CDT) HIV Antigen Antibody Combo Nonreactive NR^Nonrea ctive 03/18/2019 10:12 AM CDT [facility] Comment:HIV-1 p24 Ag & HIV-1 /HIV-2 Ab Not Detected Blood specimen (specimen) 03/17/2019 1:58 PM CDT 03/17/2019 2:03 PM CDT us Kevin Silvestre MD LAB - BLOOD ORDERABLES Final R esult [facility] [address] [place] [address] * LIPID REFLEX TO DIRECT LDL PANEL (05/03/2011 8:11 AM SECRETARIAL TEACHER) Cholesterol 135 0 - 200 mg/dL [facility] Comment: LDL Cholesterol is the primary guide to therapy. The NCEP recommends further evaluation of: patients with cholesterol greater than 200 mg/dL if additional risk factors are present, cholesterol greater than 240 mg/dL, triglycerides greater than 150 mg/dL, or HDL less than 40 mg/dL. Triglycerides 56 0 - 150 mg/dL [facility] HDL Cholesterol 57 50 - 110 mg/dL [facility] LDL Cholesterol Calculated 67 0 - 129 mg/dL [facility] Comment: LDL Cholesterol is the primary guide to therapy: LDL-cholesterol goal in high risk patients is <100 mg/dL and in very high risk patients is <70 mg/dL. VLDL-Cholesterol 11 0 - 30 mg/dL [facility] Cholesterol/HDL Ratio 2.4 0.0 - 5.0 [facility] Blood specimen (specimen) 05/03/2011 8:11 AM SECRETARIAL TEACHER 05/03/2011 8:17 AM SECRETARIAL TEACHER us Bolssom Matos MD LAB - BLOOD ORD ERABLES Final Result [facility] [address] [place] [address] from Last 3 Months or Most Recently Relevant to Health Maintenance [place] [id number] [place] [id number] [place] [id number] [facility] DEPT OF LABOR * Guarantor: Ora Harding Account Type Relation to Patient Date of Phone Billing Address Medication Therapy Self [address] [place] [address] [place] [place] [id number] Advance Directives For more information, please contact: [phone] * Full Code (Latest Code Status on File) Date Activated Date Inactivated Comments 05/07/2013 1:49 PM 05/08/2013 1:37 PM Care Teams Surveillance Specialist Relationship Specialty Start Date End Date Blossom Matos MD [address] [place] [address] PCP - General Internal Medicine 02/17/13 Phyllis Pak PA-C [address] [place] [address] Physician Slurry Control Tender Physician Slurry Control Tender - Medical 06/02/24 Phyllis Pak PA-C [address] [place] [address] Assigned Gastroenterology Provider 08/15/24 Fatmata Waggoner RPH Pharmacist 08/25/24 Fatmata Waggoner RPH Assigned MTM Pharmacist 09/12/24 Ewelina Crerato MD [address], [facility] [address] [place], [place] [id number] Assigned Neuroscience Provider 11/12/24
--- OUTSIDE RECORDS SUMMARY | 2024-11-18 22:29 | XMS_ITS | Encounter Summary ---
Author Organization [facility] Address [address] [place] [address] Care Team Providers Care Custodial Maintenance Worker Name Role Phone Blossom Matos MD Primary Care P rovider Barbara Brennan PA-C Unavailable Barbara Brennan-C Unavailable Fatmata Waggoner [facility] Unavailable Unavailable Fatmata Waggoner [facility] Unavailable Unavailable Encounter Details Date Type Department Care Team (Latest Contact Info) Description 10/26/2024 Travel Social History Tobacco Use Types Packs/Day Years Used Date Smoking Tobacco: Never Passive Smoke Exposure: Never Smokeless Tobacco: Never Passive Exposure Comments:pe r pt Alcohol Use Standard Drinks/Week Comments No 0 (1 standard drink = 0.6 oz pur e alcohol) PHQ-2 Answer Date Recorded PHQ-2 Score 1 08/12/2024 [place] Depression Scale Answer Date Recorded [place] Depression Score 0 07/31/2019 Last EPDS Self [...] on file 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 Gender Identity Not on file Sexual Orientation Not on file 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 on file documented as of this encounter Plan of Treatment Upcoming Encounters Date Type Department Care Team (Late st Contact Info) Description 01/25/2025 8:30 AM CDT Virtual Visit [facility] [address] [place] [phone] Barbara Brennan PA-C [address] [place] [address] documented as of this encounter Visit Diagnoses Not on filedocumented in this encounter Care Teams Custodial Maintenance Worker Relationship Specialty Start Date End Date Blossom Matos MD [address] [place], [place] [phone] PCP - General Internal Medicine 02/17/13 Barbara Brennan PA-C [address] [place], [place] [address] Physician Extruder Physician Extruder - Medical 06/02/24 Barbara Brennan PA-C [address] [place] [address] Assigned Gastroenterology Provider 08/15/24 Fatmata Waggoner [facility] Pharmacist 08/25/24 Fatmata Waggoner RP Assigned MTM Pharmacist 09/12/24 documented as of this encounter
[2024-11-18 22:31] VITALS: BP 126/80; PULSE 80; RESP 16; TEMP 36.3; O2SAT 100; BMI 27.0
--- NOTE | 2024-11-18 22:41 | ED.GENADULT ---
HPI - General Adult General Time Seen by Provider: 22:41 Date Seen: 11/18/24 Chief complaint: Extremity Pain/Injury, Lower Stated complaint: pain in both legs Time Seen by Provider: 11/18/24 22:30 Source: patient, RN notes reviewed and old records reviewed Mode of arrival: ambulatory Limitations: no limitations History of Present Illness HPI narrative: This 39-year-old female is coming in with burning sensation in her feet. It started in her right foot but recently has moved to the left foot 2. It is more on the outside of the foot, not the toes. It has been going on for maybe 1-2 months. She actually saw a household appliances service technician who gave her a foot brace but she states did not find anything wrong. She was given an ankle brace per nursing staff who saw the picture of what patient was given. It hurts to walk on her feet when she is feeling like this. She is not noting anything in her hands currently. It is a burning sensation, is worse at night in is getting progressively worse. She has had no fevers chills. She notes no other joint pains. She has not had any tick exposure. No fevers or chills. She is leaving the Friday for a month to go to [place], she will be seeing family there. She had a normal TSH back in July of 2022. Fasting glucose was normal at 85 then. She denies any chronic health issues, no trauma. Patient points to the outside lateral aspect of both of her feet where she is feeling up burning sensation. She states sometimes she will get sharp pain in her feet at night. She has never been diagnosed with diabetes. There is no chance for and no chance for future , she has had a tubal ligation. Related Data Previous Rx's ?Medication ?Instructions ?Recorded sumatriptan succinate 100 mg tablet See Rx Instructions PO .COMPLEX #6 05/26/23 tabs gabapentin 100 mg capsule 100 mg PO QHS PRN #40 caps 11/18/24 Allergies Allergy/AdvReac Type Severity Reaction Status Date / Time No Known Allergies Allergy Unknown Verified 11/18/24 22:31 Review of Systems Status of ROS: Reports: 6 or more systems reviewed and unremarkable except as noted in History and below PFSH PFS Surgical History Status post left oophorectomy ?Z90.721 - Acquired absence of ovaries, unilateral (ICD-10) S/P cholecystectomy ?Z90.49 - Acquired absence of other specified parts of digestive tract (ICD-10) S/P tubal ligation ?Z98.51 - Tubal ligation status (ICD-10) S/P ?Z98.891 - History of uterine scar from previous surgery (ICD-10) Social History Smoking Status: Never smoker Non-prescribed substance use: denies use Exam Const: Vital Signs, click to edit/add: Vital Signs - 24 hr 11/18/24 22:31 Temperature 97.3 F L Pulse Rate [Pulse Oximeter] 80 Respiratory Rate 16 Blood Pressure [Ri ght Upper Arm] 126/80 Pulse Oximetry 100 Oxygen Delivery Me thod Room Air This 39-year-old female is alert, interactive, no apparent distress. She is ambulatory into the ED of her own accord. Face atraumatic, sclera clear. Neck supple, no thyromegaly masses or nodules, no adenopathy noted. Lungs clear, good air entry, no wheezing or crackles. CV regular rate and rhythm, no murmur, normal S1-S2. She has no lower extremity edema, normal pulses in her feet. There is no swelling, no erythema noted, normal light touch sensation. Documenting provider has reviewed patient's vital signs: yes Course Course ED Course: Discussed with patient that I suspect some form peripheral neuropathy with her symptoms that are worsening, worsen at night. Could try a trial of gabapentin. She really needs follow-up in further workup in clinic but is leaving in 2 days to go to [place]. If discuss with her that she is likely going to need to see a neurologist, may need further nerve conduction studies done in further laboratory values in screening test done. I can do some basic blood work tonight here, rule out diabetes, rule out thyroid disease. Further testing will not be done as she is actually going to be leaving the country and I will have no way to follow-up on these test results. She may have to wait and come back once her trip to [place] is done. Labs are overall reassuring, can send in a prescription for gabapentin for her to try at bedtime. I have discussed with her that I will not have a quick fix or definitive diagnosis for her. One easy thing we can do is to make sure she does not have diabetes. If she does she is going to need to follow up prior to leaving the country. Reevaluation(s) Time of Reevaluation #1: 23:33 Reevaluation #1: Have reviewed with patient that her CBC is normal, no anemia. If there are ongoing concerns, she will need further blood testing which would include a B12 and folate. I have reassured her that her comprehensive metabolic panel is normal, no diabetes on her blood work. We have a TSH which is pending, we will let her discharge to home, will contact her in the morning if it is abnormal and she will need to try to get follow-up before she leaves. We have discussed other pain management, she has not tried any Tylenol or ibuprofen. I would suggest doing Tylenol 1000 mg orally before bedtime. I will send her with some gabapentin, but unfortunately feel like I need to give her enough supply to last her her trip. I do not know for sure if she does have peripheral neuropathy but there are some symptoms that are certainly suggestive of it. There is no way for me to facilitate further evaluation for her out of the ER tonight. If the gabapentin is not helping, she simply can stop it. Do recommend trying some Tylenol 1st at bedtime and could consider ibuprofen as well. Have stressed to her that if she has ongoing symptoms that she will need follow-up when she gets back. There are other tests that potentially could be done in evaluation and workup of this but it is nothing that we will do out of the ER. She will have to follow up with her primary. This is stressed to her. Vital Signs Vital signs: Initial Vital Signs Temperature 97.3 F L 11/18/24 22:31 Temperature Source Temporal Artery Scan 11/18/24 22:31 Pulse Rate 80 11/18/24 22:31 Respiratory Rate 16 11/18/24 22:31 Blood Pressure 126/80 11/18/24 22:31 Blood Pressure Mean 95 11/18/24 22:31 Blood Pressure Position Sitting 11/18/24 22:31 Pulse Oximetry 100 11/18/24 22:31 Oxygen Delivery Method Room Air 11/18/24 22:31 Vital Signs Temperature 97.3 F L 11/18/24 22:31 Pulse Rate 80 11/18/24 22:31 Respiratory Rate 16 11/18/24 22:31 Blood Pressure 126/80 11/18/24 22:31 Pulse Oximetry 100 11/18/24 22:31 Oxygen Delivery Method Room Air 11/18/24 22:31 Temperature 97.3 F L 11/18/24 22:31 Pulse Rate 80 11/18/24 22:31 Respiratory Rate 16 11/18/24 22:31 Blood Pressure 126/80 11/18/24 22:31 Pulse Oximetry 100 11/18/24 22:31 Oxygen Delivery Method Room Air 11/18/24 22:31 Medical Decision Making Lab Data Lab results reviewed: Yes I reviewed the patient's lab results Lab results narrative: TSH was reviewed just after patient was discharged, did come back normal. Labs: Lab Results 11/18/24 Range/Units 23:03 WBC 5.32 (4.50-11.00) K/uL RBC 4.35 (4.00-5.20) m/uL Hgb 12.6 (12.0-16.0) gm/dL Hct 38.3 (33.0-51.0) % MCV 88 (80-100) fL MCH 29 (26-34) pg MCHC 33 (32-36) gm/dL RDW Coeff of Armand 13.0 (11.5-15.5) % Plt Count 168 (140-440) K/uL Neut % (Auto) 41.7 L (42.0-72.0) % Lymph % (Auto) 45.9 H (20-44) % [place] % (Auto) 8.1 (0.0-11.0) % Eos % (Auto) 3.0 (0.0-7.0) % Baso % (Auto) 0.4 (0.0-3.0) % Neut # (Auto) 2.20 (1.7-7.0) K/uL Lymph # (Auto) 2.40 (0.90-2.90) K/uL [place] # (Auto) 0.40 (0.00-0.90) K/UL Eos # (Auto) 0.16 (0.00-0.50) K/uL Baso # (Auto) 0.02 (0.00-0.30) K/uL Abs Immat Gran (auto) 0.05 (0.00-0.30) K/uL Imm/Tot Granulo (auto) 0.9 % Sodium 138 (135-149) mmol/L Potassium 3.4 L (3.6-5.1) mmol/L Chloride 105 (96-114) mmol/L Carbon Dioxide 27 (20-32) mmol/L Anion Gap 6 L (7-15) mEq/L BUN 13 (5-24) mg/dL Creatinine 0.8 (0.5-1.5) mg/dL Estimated Creat Clear 96.71 Estimated GFR 95 ml/min Glucose 115 (60-115) mg/dL Hemoglobin A1c 5.5 (0-5.6) % Calcium 9.1 (8.4-10.6) mg/dL Total Bilirubin 0.4 (0.1-1.5) mg/dL AST 30 (12-35) U/L ALT 24 (4-35) U/L Alkaline Phosphatase 70 (40-150) U/L Total Protein 7.5 (6.0-8.3) g/dL Albumin 4.1 (3.3-5.0) g/dL TSH 2.770 (0.270-4.200) uIU/mL Discharge Plan Discharge Clinical Impression: Burning sensation of feet Patient Disposition: Home, Self-Care Condition: Stable Instructions: Peripheral Neuropathy (ED), Paresthesia (ED) Additional Instructions: Can try the gabapentin 100 mg at bedtime and see if it helps your symptoms. If it is not helping after 1-2 weeks, please stop the medicine. You can also try Tylenol at bedtime, 1000 mg. I do wonder if your symptoms are coming from a condition called peripheral neuropathy. There can be many different causes of this, further workup should be done when you get back if you have ongoing symptoms. This is something that will need to be done through clinic, we do not arrange for Neurology outpatient consultation or further lab work, further potential nerve testing out of the ER. If you do have peripheral neuropathy, it can be a chronic and progressive condition which is why it is important for you to follow-up outpatient as soon as you are able to. The thyroid blood work is still pending, if there is abnormalities to this, nursing staff will call you in the morning but you will need to follow up in clinic. Activity Level: Activity as Tolerated Prescriptions: New gabapentin 100 mg capsule 100 mg PO QHS PRNQty: 40 0RF No Action sumatriptan succinate 100 mg tablet See Rx Instructions PO .COMPLEX Qty: 6 0RF Rx Instructions: take 1 tab at onset of headache; if no relief, may repeat 1 tab after at least 2 hrs; max = 2 tabs/24 hrs PO Follow Up/Referrals: Donavan Galarza MD [Primary Care Provider, Family Practice] Stand Alone Forms: EdPuzzle Info Instructions
[2024-11-18 23:09] LABS: Basophils Absolute Auto 0.02 K/uL (0.00-0.30); Basophils Percent Auto 0.4 % (0.0-3.0); Eosinophils Absolute Auto 0.16 K/uL (0.00-0.50); Hematocrit 38.3 % (33.0-51.0); Hemoglobin* 12.6 gm/dL (12.0-16.0); Immature Granulocytes Abs Auto 0.05 K/uL (0.00-0.30); Immature Granulocytes Pct Auto 0.9 %; Lymphocytes Percent Auto 45.9 % (20-44); Mean Corpuscular HGB Conc 33 gm/dL (32-36); Mean Corpuscular Hemoglobin 29 pg (26-34); Mean Corpuscular Volume 88 fL (80-100); Monocytes Percent Auto 8.1 % (0.0-11.0); Neutrophils Percent Auto 41.7 % (42.0-72.0); Platelet Count* 168 K/uL (140-440); Red Blood Count 4.35 m/uL (4.00-5.20); White Blood Count* 5.32 K/uL (4.50-11.00)
[2024-11-18 23:12] LABS: Slide Review Reflex No
[2024-11-18 23:18] LABS: Albumin* 4.1 g/dL (3.3-5.0); Chloride* 105 mmol/L (96-114); Sodium* 138 mmol/L (135-149)
[2024-11-18 23:19] LABS: Potassium* 3.4 mmol/L (3.6-5.1)
[2024-11-18 23:21] LABS: Alanine Aminotransferase* 24 U/L (4-35); Alkaline Phosphatase* 70 U/L (40-150); Anion Gap 6 mEq/L (7-15); Aspartate Amino Transferase* 30 U/L (12-35); Bilirubin Total* 0.4 mg/dL (0.1-1.5); Blood Urea Nitrogen* 13 mg/dL (5-24); Carbon Dioxide* 27 mmol/L (20-32); Creatinine* 0.8 mg/dL (0.5-1.5); Est. Creatinine Clearance* 96.71; Estimated Glomerular Filt Rate 95 ml/min; Total Protein* 7.5 g/dL (6.0-8.3)
[2024-11-18 23:22] LABS: Calcium* 9.1 mg/dL (8.4-10.6); Glucose* 115 mg/dL (60-115)
[2024-11-18 23:23] LABS: Hemoglobin A1C* 5.5 % (0-5.6)
== END 2024-11-19 00:12 | disposition home or self-care (01) ==
LOC: ED 23:53
PROVIDERS: Emergency Provider Family Medicine; PCP Family Medicine
DX: R20.8 Other disturbances of skin sensation (principal)
CPT/HCPCS: 36415; 80053; 83036; 84443; 85025; 99283